=== PATIENT | male | born 1930 | race Caucasian/White ===

== ENCOUNTER 2016-07-14 09:28 | Emergency (ER) | payer MEDICARE ==
[2016-07-14 09:47] VITALS: BP 158/82
[2016-07-14] MEDS ORDERED: Sodium Chloride 0.9% 10 ML Syringe FLUSH PRN (10:05)
[2016-07-14] MEDS ORDERED: Sodium Chloride 0.9% 1,000 ML IV STA (10:05)
[2016-07-14] MEDS ORDERED: Ondansetron 4 MG/2 ML SDV IVPUSH ONE (10:07)
--- NOTE | 2016-07-14 10:14 | EDM.PDOC ---
ED HPI GENERAL MEDICAL PROBLEM - General Chief Complaint: General Stated Complaint: COMPLICATIONS FROM MRI Time Seen by Provider: 07/14/16 10:09 Source of Information: Reports: Patient, RN notes reviewed History Limitations: Reports: No limitations - History of Present Illness INITIAL COMMENTS - FREE TEXT/NARRATIVE: 78-year-old gentleman presents emergency department today with sudden onset nausea vomiting and dizziness, has a known history of vascular dementia has had difficulties with behavior in the past was currently undergoing an MRI for ongoing low back pain, after completion of the MRI he had a sudden onset of dizziness with vomiting. He did not receive contrast in the MRI was brought to the emergency department from the MRI suite continues to have nausea and vomiting in the emergency department. Has had intermittent bouts of dizziness over last several days. Normally uses morphine as a cough suppressant did take morphine this morning possibly on an empty stomach - Related Data Allergies Allergy/AdvReac Type Severity Reaction Status Date / Time donepezil [From Aricept] Allergy Insomnia Verified 06/25/16 16:35 onion Allergy Other Verified 06/25/16 16:35 oxybutynin Allergy Swelling Verified 06/25/16 16:35 Home Meds: Home Meds Citalopram [Citalopram HBr] 20 mg PO DAILY 12/27/15 [History] Clopidogrel [Plavix] 75 mg PO DAILY 12/27/15 [History] Furosemide [Lasix] 40 mg PO BID 12/27/15 [History] Esomeprazole Magnesium 40 mg PO DAILY 05/07/16 [History] Multivit-Min/FA/Lycopene/Lut [Centrum Silver Tablet] 1 tab PO DAILY 05/07/16 [ History] Ibuprofen [Motrin] 600 mg PO Q6H PRN 06/09/16 [History] traMADol [Ultram] 50 mg PO Q6H PRN 06/09/16 [History] Aspirin/Calcium Carbonate/Mag [Aspirin Buffered 325 mg Tab] 325 mg PO DAILY [History] Methylprednisolone [IJD: Methylprednisolone] 4 mg PO DAILY 06/25/16 [History] Mirtazapine [Remeron] 7.5 mg PO BEDTIME 06/25/16 [History] QUEtiapine Fumarate [Seroquel] 12.5 mg PO BID 06/25/16 [History] Rivastigmine Tartrate [Rivastigmine] 3 mg PO BID 06/25/16 [History] atorvaSTATin Calcium [Atorvastatin Calcium] 80 mg PO DAILY 06/25/16 [History] Amoxicillin/Clavulanate K [Augmentin 875-125 MG] 1 tab PO BID 07/13/16 [History] Benzonatate [Tessalon Perles] 1 tab PO Q4H PRN 07/13/16 [History] Past Medical History HEENT History: Reports: Impaired vision Cardiovascular History: Reports: Congenital septal defect, Heart murmur, High cholesterol, Hypertension Gastrointestinal History: Reports: GERD Genitourinary History: Reports: Chronic renal insuffiency Musculoskeletal History: Reports: Other (see below) Other Musculoskeletal History: chronic left hip pain Neurological History: Reports: TIA Other Neuro History: daughter states patient has had a stroke Psychiatric History: Reports: Anxiety, Dementia, Depression Oncologic (Cancer) History: Reports: Other (see below) Other Oncologic History: 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 - Infectious Disease History Infectious Disease History: Reports: Chicken pox, Measles, Mumps - Past Surgical History Cardiovascular Surgical History: Reports: Coronary artery bypass Social & Family History - Tobacco Use Smoking Status *Q: Never Smoker Second Hand Smoke Exposure: No - Caffeine Use Caffeine Use: Reports: None - Recreational Drug Use Recreational Drug Use: No ED ROS GENERAL - Review of Systems Review Of Systems: See Below Constitutional: Denies: fever, chills HEENT: Reports: Vertigo Respiratory: Reports: No Symptoms Cardiovascular: Reports: No symptoms GI/Abdominal: Reports: Nausea, Vomiting : Reports: no symptoms Musculoskeletal: Reports: no symptoms Skin: Reports: no symptoms Neurological: Reports: Dizziness, Syncope (Near syncope) ED EXAM, GENERAL - Physical Exam Exam: See Below Free Text/Narrative:: General: Elderly male, not in any distress slightly confused oriented x1 HEENT: head is atraumatic normocephalic, eyes pupils equal round reactive to light and accommodation sclera clear no conjunctivitis appreciated. Ears blocked by cerumen bilaterally. Nose no septal deviation, nares are clear, no blood present. Mouth mucosa is moist and pink no erythema or exudate noted in soft palate, tongue is midline uvula is midline, dentition is intact. Neck: Supple no thyromegaly no tracheal deviation. Nodes: Cervical nodes subclavicular nodes nontender no palpable lymphadenopathy noted. Lungs: clear to auscultation bilaterally with symmetrical respirations, no adventitious noise appreciated. CV: Regular rate and rhythm S1 and S2 appreciated no murmurs rubs or gallops noted. Abdomen: Soft, nontender, no palpable masses or organomegaly appreciated, no distention no guarding bowel sounds are present, . Neuro: Cranial nerves II through XII grossly intact power is 5 out of 5 in upper extremities can do rapid alternating movements Romberg is negative however after Romberg was completed after standing for approximately 5 minutes became dizzy and started vomiting Skin: Warm and dry, intact Extremities: +1 pedal edema bilaterally Course - Vital Signs Last Recorded V/S: Last Vital Signs Temp 98.1 F 07/14/16 09:47 Pulse 67 07/14/16 09:47 Resp 16 07/14/16 09:47 BP 158/82 H 07/14/16 09:47 Pulse Ox 96 07/14/16 09:47 - Orders/Labs/Meds Orders: Active Orders 24 hr Category Date Time Status EKG Documentation Completion [RC] ASDIRECTED Care 07/14/16 10:07 Active Peripheral IV Care [RC] . DIRECTED Care 07/14/16 10:06 Active UA W/MICROSCOPIC [URIN] Urgent Lab 07/14/16 10:05 Uncollected Sodium Chloride 0.9% [Normal Saline] 1,000 ml Med 07/14/16 10:05 Active IV .BOLUS Sodium Chloride 0.9% [Saline Flush] Med 07/14/16 10:05 Active 10 ml FLUSH ASDIRECTED PRN Peripheral IV Insertion Adult [OM.PC] Urgent Oth 07/14/16 10:05 Ordered EKG 12 Lead [EK] Stat Ther 07/14/16 10:07 Ordered Medication Orders Sodium Chloride (Normal Saline) 1,000 mls @ 500 mls/hr IV .BOLUS STA Stop: 07/14/16 12:04 Last Admin: 07/14/16 10:20 Dose: 500 mls/hr Sodium Chloride (Saline Flush) 10 ml FLUSH ASDIRECTED PRN PRN Reason: Keep Vein Open Last Admin: 07/14/16 10:21 Dose: 10 ml Labs: Laboratory Tests 07/14/16 07/14/16 Range/Units 10:15 10:15 WBC 7.2 (4.5-11.0) K/uL RBC 3.47 L (4.30-5.90) M/uL Hgb 10.9 L (12.0-15.0) g/dL Hct 32.9 L (40.0-54.0) % MCV 95 (80-98) fL MCH 31 (27-31) pg MCHC 33 (32-36) % Plt Count 243 (150-400) K/uL Neut % (Auto) 54 (36-66) % Lymph % (Auto) 32 (24-44) % [place] % (Auto) 8 H (2-6) % Eos % (Auto) 6 H (2-4) % Baso % (Auto) 1 (0-1) % Sodium 141 (140-148) mmol/L Potassium 4.7 (3.6-5.2) mmol/L Chloride 105 (100-108) mmol/L Carbon Dioxide 27 (21-32) mmol/L Anion Gap 8.8 (5.0-14.0) mmol/L BUN 22 H (7-18) mg/dL Creatinine 1.6 H (0.8-1.3) mg/dL Est Cr Clr Drug Dosing 35.08 mL/min Estimated GFR (MDRD) 41 L (>60) Glucose 110 H (74-106) mg/dL Calcium 8.4 L (8.5-10.1) mg/dL Total Bilirubin 0.4 (0.2-1.0) mg/dL AST 21 (15-37) U/L ALT 23 (12-78) U/L Alkaline Phosphatase 42 L (46-116) U/L Total Protein 6.8 (6.4-8.2) g/dL Albumin 3.4 (3.4-5.0) g/dL Globulin 3.4 (2.3-3.5) g/dL Albumin/Globulin Ratio 1.0 L (1.2-2.2) Meds: Medications Generic Name Dose Route Start Last Admin Trade Name Freq PRN Reason Stop Dose Admin Sodium Chloride 1,000 mls @ 500 mls/hr 07/14/16 10:05 07/14/16 10:20 Normal Saline IV 07/14/16 12:04 500 mls/hr .BOLUS STA Administration Sodium Chloride 10 ml 07/14/16 10:05 07/14/16 10:21 Saline Flush FLUSH 10 ml ASDIRECTED PRN Administration Keep Vein Open Discontinued Medications Generic Name Dose Route Start Last Admin Trade Name Freq PRN Reason Stop Dose Admin Ondansetron HCl 4 mg 07/14/16 10:07 07/14/16 10:21 Zofran IVPUSH 07/14/16 10:08 4 mg ONETIME ONE Administration Departure - Departure Time of Disposition: 11:24 Disposition: Home, Self-Care 01 Condition: fair Clinical Impression: Dizzy Forms: ED Department Discharge Additional Instructions: Use Zofran as needed for nausea and vomiting symptoms, Please followup with your primary care provider in 3-5 days if not better, please call return to the emergency department with worsening of symptoms. - My Orders Last 24 Hours: My Active Orders 07/14/16 10:05 UA W/MICROSCOPIC [URIN] Urgent Sodium Chloride 0.9% [Normal Saline] 1,000 ml IV .BOLUS Sodium Chloride 0.9% [Saline Flush] 10 ml FLUSH ASDIRECTED PRN Peripheral IV Insertion Adult [OM.PC] Urgent 07/14/16 10:06 Peripheral IV Care [RC] . DIRECTED 07/14/16 10:07 EKG Documentation Completion [RC] ASDIRECTED EKG 12 Lead [EK] Stat - Assessment/Plan Last 24 Hours: My Active Orders 07/14/16 10:05 UA W/MICROSCOPIC [URIN] Urgent Sodium Chloride 0.9% [Normal Saline] 1,000 ml IV .BOLUS Sodium Chloride 0.9% [Saline Flush] 10 ml FLUSH ASDIRECTED PRN Peripheral IV Insertion Adult [OM.PC] Urgent 07/14/16 10:06 Peripheral IV Care [RC] . DIRECTED 07/14/16 10:07 EKG Documentation Completion [RC] ASDIRECTED EKG 12 Lead [EK] Stat Plan: Assessment Acuity = acute Site and laterality = nausea and vomiting with frequent falls complicated patient with known history of vascular dementia as well as history of cerebrovascular currently on aspirin and Plavix Etiology = unclear etiology certainly suspicious for cerebrovascular accident Manifestations = none Location of injury = home Lab values = EKG demonstrates a sinus rhythm with a left bundle branch block similar to EKG in 2016 hemoglobin low at 10.9 consistent normochromic anemia creatinine elevated 1.6 consistent chronic renal failure stage G. IIIB Plan I did discuss options with them including further evaluation which would include a head scan however they declined because of limited treatment options, the patient feels his symptoms have resolved with Zofran and would like to go home, prescription written for Zofran, followup with primary care 3-5 days if not better Patient was in agreement with the plan all questions were answered, they were instructed to return to the emergency department or call for worsening symptoms. This note was dictated using [employer] voice recognition software please call with any questions.
== END 2016-07-14 11:35 | disposition home or self-care (01) ==
LOC: JP.ED 09:28
DX: R42 Dizziness and giddiness (principal); R11.2 Nausea with vomiting, unspecified; F01.51 Vascular dementia, unspecified severity, with behavioral disturbance; E78.00 Pure hypercholesterolemia, unspecified; I12.9 Hypertensive chronic kidney disease with stage 1 through stage 4 chronic kidney disease, or unspecified chronic kidney disease; N18.9 Chronic kidney disease, unspecified; Z86.73 Personal history of transient ischemic attack (TIA), and cerebral infarction without residual deficits; F41.9 Anxiety disorder, unspecified; F32.9 Major depressive disorder, single episode, unspecified; Z85.828 Personal history of other malignant neoplasm of skin; Z95.1 Presence of aortocoronary bypass graft; Z79.02 Long term (current) use of antithrombotics/antiplatelets; Z79.82 Long term (current) use of aspirin; Z79.899 Other long term (current) drug therapy; Z88.8 Allergy status to other drugs, medicaments and biological substances; Z91.018 Allergy to other foods
CPT/HCPCS: 36415; 80053; 85025; 93005; J2405; J7040; J7050; 93010; 96361; 96374; 99284; 99284-25

== ENCOUNTER 2016-08-23 15:44 | Emergency (ER) | payer MEDICARE ==
[2016-08-23 16:04] VITALS: BP 115/58
[2016-08-23] MEDS ORDERED: Ketorolac 60 MG/2 ML SDV IM ONE (16:27)
[2016-08-23] MEDS ORDERED: methylPREDNISolone Sodium Succinate 125 MG/2 ML SDV IM ONE (16:27)
--- NOTE | 2016-08-23 16:31 | EDM.PDOC ---
[id number] 4d LEFT SHOULDER & NECK PAIN Time Seen by Provider: 08/23/16 16:15 Source: Reports: Patient, Family History Limitations: Reports: Other (Patient is confused, dementia and is an inconsistent historian) - History of Present Illness INITIAL COMMENTS - FREE TEXT/NARRATIVE: 78-year-old male who for the last 2 days has had left neck pain radiating into the arm. He has known arthritis and cervical disc disease. They tried her usual medication available to him including tramadol and oxycodone but he had no relief. Today he is uncomfortable but moving a little better. No falls or specific trauma. No fevers or chills. No other illness. Occurred When: other (Over the past 48 hours) Severity: moderate Pain/Injury Location: Reports: neck, upper extremity, left Consciousness: Reports: no loss of consciousness Associated Symptoms: Reports: muscle spasms, neck pain, other (Pain into his left shoulder and arm and also some "swelling" of his left hand). Denies: chest pain, headache Allergies/ADRs: Allergies donepezil [From Aricept] Allergy (Verified 07/22/16 11:35) Insomnia onion Allergy (Verified 07/22/16 11:35) Other oxybutynin Allergy (Verified 07/22/16 11:35) Swelling Home Medications: Ambulatory Orders Citalopram [Citalopram HBr] 20 mg PO DAILY 12/27/15 [Confirmed 07/22/16] Clopidogrel [Plavix] 75 mg PO DAILY 12/27/15 [Confirmed 07/22/16] Furosemide [Lasix] 40 mg PO BID 12/27/15 [Confirmed 07/22/16] Esomeprazole Magnesium 40 mg PO DAILY 05/07/16 [Confirmed 07/22/16] Multivit-Min/FA/Lycopene/Lut [Centrum Silver Tablet] 1 tab PO DAILY 05/07/16 [ Confirmed 07/22/16] Ibuprofen [Motrin] 600 mg PO Q6H PRN 06/09/16 [Confirmed 07/22/16] traMADol [Ultram] 50 mg PO Q6H PRN 06/09/16 [Confirmed 07/22/16] Aspirin/Calcium Carbonate/Mag [Aspirin Buffered 325 mg Tab] 325 mg PO DAILY [Confirmed 07/22/16] Methylprednisolone [IJD: Methylprednisolone] 4 mg PO DAILY 06/25/16 [Confirmed 07/22/16] Mirtazapine [Remeron] 7.5 mg PO BEDTIME 06/25/16 [Confirmed 07/22/16] QUEtiapine Fumarate [Seroquel] 12.5 mg PO BID 06/25/16 [Confirmed 07/22/16] Rivastigmine Tartrate [Rivastigmine] 3 mg PO BID 06/25/16 [Confirmed 07/22/16] atorvaSTATin Calcium [Atorvastatin Calcium] 80 mg PO DAILY 06/25/16 [Confirmed 07/22/16] Benzonatate [Tessalon Perles] 1 tab PO Q4H PRN 07/13/16 [Confirmed 07/22/16] Past Medical History HEENT History: Reports: Impaired vision Cardiovascular History: Reports: Congenital septal defect, Heart murmur, High cholesterol, Hypertension Gastrointestinal History: Reports: GERD Genitourinary History: Reports: Chronic renal insuffiency Musculoskeletal History: Reports: Other (see below) Other Musculoskeletal History: chronic left hip pain Neurological History: Reports: TIA Other Neuro History: daughter states patient has had a stroke Psychiatric History: Reports: Anxiety, Dementia, Depression Oncologic (Cancer) History: Reports: Other (see below) Other Oncologic History: 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 - Infectious Disease History Infectious Disease History: Reports: Chicken pox, Measles, Mumps - Past Surgical History Cardiovascular Surgical History: Reports: Coronary artery bypass Social & Family History - Tobacco Use Smoking Status *Q: Never Smoker Second Hand Smoke Exposure: No - Caffeine Use Caffeine Use: Reports: None - Recreational Drug Use Recreational Drug Use: No Review of Systems - Review of Systems Review Of Systems: See Below Constitutional: Denies: fever Eyes: Denies: vision change Ears: Denies: dizziness Respiratory: Denies: Shortness of Breath, Cough Cardiovascular: Denies: chest pain GI/Abdominal: Denies: Nausea, Vomiting Genitourinary: Reports: no symptoms Musculoskeletal: Reports: neck pain, arm pain, other (His hand was swollen) Skin: Reports: no symptoms Neurological: Reports: Confusion (Chronic and stable). Denies: Headache Trauma Exam - Physical Exam Exam: See Below Exam Limited By: No limitations General Appearance: Reports: alert, moderate distress Head: Reports: atraumatic, other (He has marked pain along the left paracervical muscles with rotation of the head to the left or palpation of the neck) Neck: Reports: painful range of motion, tenderness (Along the paracervical muscles on the left side). Denies: spinous processes tender Respiratory Exam: Reports: no respiratory distress, lungs clear Cardiovascular: Reports: regular rate, rhythm Extremities: Reports: no evidence of injury, other (I don't appreciate any swelling or asymmetry of the upper or lower extremity) Course - Vital Signs Last Recorded V/S: Last Vital Signs Temp 97.3 F 08/23/16 16:10 Pulse 68 08/23/16 16:10 Resp 16 08/23/16 16:10 BP 115/58 L 08/23/16 16:10 Pulse Ox 95 08/23/16 16:10 - Orders/Labs/Meds Meds: Medications Discontinued Medications Generic Name Dose Route Start Last Admin Trade Name Meredith PRN Reason Stop Dose Admin Ketorolac Tromethamine 60 mg 08/23/16 16:27 08/23/16 17:06 Toradol IM 08/23/16 16:28 60 mg ONETIME ONE Administration Methylprednisolone Sodium Succinate 125 mg 08/23/16 16:27 08/23/16 17:07 Solu-Medrol IM 08/23/16 16:28 125 mg ONETIME ONE Administration - Re-Assessments/Exams Free Text/Narrative Re-Assessment/Exam: 08/23/16 17:26 Patient was given 60 mg of Toradol IM along with one 25 of Solu-Medrol IM. Still having some discomfort but some improvement. He was given 15 Flexeril to take one up to every 6-8 hours at home along with his pain medications and he can recheck in 2-3 days if not improving Departure - Departure Time of Disposition: 17:38 Disposition: Home, Self-Care 01 Condition: fair Clinical Impression: Neck pain, acute Dementia with behavioral problem Qualifiers: Dementia type: unspecified type Qualified Code(s): F03.91 - Unspecified dementia with behavioral disturbance Instructions: Muscle Strain, [id number] Referrals: Sidney Lorenzana [employer] [Primary Care Provider] - Forms: ED Department Discharge Care Plan Goals: Continue regular medications and add muscle relaxer up to 3 times daily if needed. Recheck in 2-3 days if not improving satisfactorily.
== END 2016-08-23 17:39 | disposition home or self-care (01) ==
LOC: JP.ED 15:44
DX: M54.2 Cervicalgia (principal); F03.91 Unspecified dementia, unspecified severity, with behavioral disturbance; E78.00 Pure hypercholesterolemia, unspecified; I10 Essential (primary) hypertension; K21.9 Gastro-esophageal reflux disease without esophagitis; F41.9 Anxiety disorder, unspecified; F32.9 Major depressive disorder, single episode, unspecified; Z86.73 Personal history of transient ischemic attack (TIA), and cerebral infarction without residual deficits; Z95.1 Presence of aortocoronary bypass graft; Z79.899 Other long term (current) drug therapy; Z88.8 Allergy status to other drugs, medicaments and biological substances; Z91.018 Allergy to other foods
CPT/HCPCS: 96372; 99283; J1885; J2930

== ENCOUNTER 2016-08-27 13:53 | Observation (INO) | payer MEDICARE ==
--- NOTE | 2016-08-27 14:39 | EDM.PDOC ---
[id number] [facility] Time Seen by Provider: 08/27/16 14:10 Source of Information: Reports: EMS, Family History Limitations: Reports: Other (Patient has advanced dementia and marked confusion) - History of Present Illness INITIAL COMMENTS - FREE TEXT/NARRATIVE: 86-year-old male brought in by ambulance with intense substernal and upper abdominal pain for the last one to one and a half hours. He was resting when he was awoke with crushing pain, was yelling for his family and tearful. It appeared he was short of breath. The patient has an extremely difficult time communicating rationally his symptoms and history because of his profound dementia. I just saw this patient a few days ago with intense neck pain. He also has recurring strokelike symptoms but it has been decided by the family that nothing will be done, he also has behavioral issues which they are attributing to recurring TIAs or strokes. He has a history of a cardia bypass but it has been over 40 years ago. When the family was pressed for a cardiac history while he was in [place] they admitted he went to the emergency room by ambulance at least 5-7 times last year with these types of symptoms. He was hospitalized several times, was told that he has an arrhythmia at nighttime. They're unsure if he did any further cardiac testing. Patient was given aspirin and nitroglycerin per EMS in route and it appears he is doing better. Onset: sudden Severity: moderate Context: Reports: Other (Symptoms seem to be worse when lying down and inactive) - Related Data Allergies Allergy/AdvReac Type Severity Reaction Status Date / Time donepezil [From Aricept] Allergy Insomnia Verified 07/22/16 11:35 onion Allergy Other Verified 07/22/16 11:35 oxybutynin Allergy Swelling Verified 07/22/16 11:35 Home Meds: Home Meds Citalopram [Citalopram HBr] 20 mg PO DAILY 12/27/15 [History] Clopidogrel [Plavix] 75 mg PO DAILY 12/27/15 [History] Furosemide [Lasix] 40 mg PO BID 12/27/15 [History] Esomeprazole Magnesium 40 mg PO DAILY 05/07/16 [History] Multivit-Min/FA/Lycopene/Lut [Centrum Silver Tablet] 1 tab PO DAILY 05/07/16 [ History] Ibuprofen [Motrin] 600 mg PO Q6H PRN 06/09/16 [History] traMADol [Ultram] 50 mg PO Q6H PRN 06/09/16 [History] Methylprednisolone [IJD: Methylprednisolone] 4 mg PO DAILY 06/25/16 [History] Mirtazapine [Remeron] 7.5 mg PO BEDTIME 06/25/16 [History] QUEtiapine Fumarate [Seroquel] 12.5 mg PO BID 06/25/16 [History] Rivastigmine Tartrate [Rivastigmine] 3 mg PO BID 06/25/16 [History] atorvaSTATin Calcium [Atorvastatin Calcium] 80 mg PO DAILY 06/25/16 [History] Benzonatate [Tessalon Perles] 1 tab PO Q4H PRN 07/13/16 [History] Aspirin 325 mg PO DAILY 08/27/16 [History] Past Medical History HEENT History: Reports: Impaired vision Cardiovascular History: Reports: Congenital septal defect, Heart murmur, High cholesterol, Hypertension Gastrointestinal History: Reports: GERD Genitourinary History: Reports: Chronic renal insuffiency Musculoskeletal History: Reports: Other (see below) Other Musculoskeletal History: chronic left hip pain Neurological History: Reports: TIA Other Neuro History: daughter states patient has had a stroke Psychiatric History: Reports: Anxiety, Dementia, Depression Oncologic (Cancer) History: Reports: Other (see below) Other Oncologic History: 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 (Brief review of systems from the family only reveals a intermittent abdominal discomfort, recent neck pain and behavioral problems.) ED EXAM, GENERAL - Physical Exam Exam: See Below Exam Limited By: No limitations General Appearance: alert, no apparent distress Eye Exam: bilateral eye: EOMI Throat/Mouth: Normal inspection Respiratory/Chest: no respiratory distress, lungs clear Cardiovascular: regular rate, rhythm GI/Abdominal: soft, other (He does complain of tenderness to palpation across the upper abdomen, he has a fairly prominent ventral hernia) Extremities: pedal edema (Has a trace of lower extremity edema bilaterally, they 're symmetric) Neurological: no motor/sensory deficits (Grossly no weakness of an extremity or asymmetry of sensation to the extremities) Psychiatric: other (Patient is very friendly, animated and does not appear to be in any distress) Skin Exam: Warm, Dry EKG INTERPRETATION Rhythm: NSR QRS: LBBB (Incomplete) ST-T: normal Course - Vital Signs Last Recorded V/S: Last Vital Signs Temp 99.0 F 08/28/16 07:03 Pulse 67 08/28/16 07:03 Resp 18 08/28/16 07:03 BP 98/50 L 08/28/16 07:03 Pulse Ox 95 08/28/16 07:03 - Orders/Labs/Meds Orders: Active Orders 24 hr Category Date Time Status EKG 12 Lead [EK] Routine Ther 08/27/16 14:34 Stop Req Medication Orders Acetaminophen (Tylenol) 650 mg PO Q4H PRN PRN Reason: Pain (Mild 1-3)/fever Last Admin: 08/27/16 23:33 Dose: 650 mg Admin: 08/27/16 19:09 Dose: 650 mg Albuterol (Proventil Neb Soln) 2.5 mg NEB Q4H PRN PRN Reason: Shortness Of Breath/wheezing Aspirin (Ecotrin) 325 mg PO DAILY [facility] Atorvastatin Calcium (Lipitor) 80 mg PO DAILY JUN Benzonatate (Tessalon Perles) 100 mg PO TID PRN PRN Reason: Cough Citalopram Hydrobromide (Celexa) 20 mg PO DAILY [facility] Clopidogrel Bisulfate (Plavix) 75 mg PO DAILY JUN Furosemide (Lasix) 40 mg PO BIDDIURETIC JUN Methylprednisolone (Medrol) 4 mg PO DAILY [facility] Mirtazapine (Remeron) 7.5 mg PO BEDTIME JUN Last Admin: 08/27/16 20:39 Dose: 7.5 mg Ondansetron HCl (Zofran Odt) 4 mg PO Q6H PRN PRN Reason: Nausea able to take PO Ondansetron HCl (Zofran) 4 mg IV Q6H PRN PRN Reason: Nausea/Vomiting Pantoprazole Sodium (Protonix) 40 mg PO ACBREAKFAST [facility] Polyethylene Glycol (Miralax) 17 gm PO DAILY PRN PRN Reason: Constipation Quetiapine Fumarate (Seroquel) 12.5 mg PO BID [facility] Last Admin: 08/27/16 20:40 Dose: 12.5 mg Rivastigmine (Exelon) 3 mg PO BID [facility] Last Admin: 08/27/16 20:39 Dose: 3 mg Tramadol HCl (Ultram) 50 mg PO Q6H PRN PRN Reason: Pain Labs: Laboratory Tests 08/27/16 08/27/16 08/27/16 Range/Units 14:33 14:33 14:33 WBC 7.6 (4.5-11.0) K/uL RBC 3.53 L (4.30-5.90) M/uL Hgb 11.2 L (12.0-15.0) g/dL Hct 34.3 L (40.0-54.0) % MCV 97 (80-98) fL MCH 32 H (27-31) pg MCHC 33 (32-36) % Plt Count 258 (150-400) K/uL Neut % (Auto) 74 H (36-66) % Lymph % (Auto) 18 L (24-44) % [place] % (Auto) 5 (2-6) % Eos % (Auto) 3 (2-4) % Baso % (Auto) 0 (0-1) % Sodium 142 (140-148) mmol/L Potassium 4.3 (3.6-5.2) mmol/L Chloride 106 (100-108) mmol/L Carbon Dioxide 28 (21-32) mmol/L Anion Gap 8.3 (5.0-14.0) mmol/L BUN 31 H (7-18) mg/dL Creatinine 1.4 H (0.8-1.3) mg/dL Est Cr Clr Drug Dosing 40.09 mL/min Estimated GFR (MDRD) 48 L (>60) Glucose 92 (74-106) mg/dL Calcium 8.2 L (8.5-10.1) mg/dL Total Bilirubin 0.4 (0.2-1.0) mg/dL AST 85 H D (15-37) U/L ALT 70 D (12-78) U/L Alkaline Phosphatase 165 H D (46-116) U/L Troponin I < 0.017 (0.000-0.056) ng/mL Total Protein 6.2 L (6.4-8.2) g/dL Albumin 3.1 L (3.4-5.0) g/dL Globulin 3.1 (2.3-3.5) g/dL Albumin/Globulin Ratio 1.0 L (1.2-2.2) Meds: Medications Generic Name Dose Route Start Last Admin Trade Name Freq PRN Reason Stop Dose Admin Acetaminophen 650 mg 08/27/16 17:17 08/27/16 23:33 Tylenol PO 650 mg Q4H PRN Administration Pain (Mild 1-3)/fever Albuterol 2.5 mg 08/27/16 17:17 Proventil Neb Soln NEB Q4H PRN Shortness Of Breath/wheezing Aspirin 325 mg 08/28/16 09:00 Ecotrin PO DAILY [facility] Atorvastatin Calcium 80 mg 08/28/16 09:00 Lipitor PO DAILY JUN Benzonatate 100 mg 08/27/16 17:17 Tessalon Perles PO TID PRN Cough Citalopram Hydrobromide 20 mg 08/28/16 09:00 Celexa PO DAILY [facility] Clopidogrel Bisulfate 75 mg 08/28/16 09:00 Plavix PO DAILY [facility] Furosemide 40 mg 08/28/16 08:00 Lasix PO BIDDIURETIC JUN Methylprednisolone 4 mg 08/28/16 09:00 Medrol PO DAILY [facility] Mirtazapine 7.5 mg 08/27/16 21:00 08/27/16 20:39 Remeron PO 7.5 mg BEDTIME JUN Administration Ondansetron HCl 4 mg 08/27/16 17:17 Zofran Odt PO Q6H PRN Nausea able to take PO Ondansetron HCl 4 mg 08/27/16 17:17 Zofran IV Q6H PRN Nausea/Vomiting Pantoprazole Sodium 40 mg 08/28/16 07:30 Protonix PO ACBREAKFAST JUN Polyethylene Glycol 17 gm 08/27/16 17:17 Miralax PO DAILY PRN Constipation Quetiapine Fumarate 12.5 mg 08/27/16 21:00 08/27/16 20:40 Seroquel PO 12.5 mg BID JUN Administration Rivastigmine 3 mg 08/27/16 21:00 08/27/16 20:39 Exelon PO 3 mg BID JUN Administration Tramadol HCl 50 mg 08/27/16 17:17 Ultram PO Q6H PRN Pain - Re-Assessments/Exams Free Text/Narrative Re-Assessment/Exam: 08/27/16 14:40 EKG done by EMS and by nursing staff here at the ER show no acute findings. A CBC, CMP and troponin will be obtained, the patient likely will need to be admitted for overnight telemetry and serial troponins. I think a social service consult is needed to help this family deal with his recurring pain symptoms and anxiety along with his behavioral issues. Departure - Departure Time of Disposition: 17:17 Disposition: Admitted As Inpatient 64 Condition: fair Clinical Impression: Atypical chest pain CAD (coronary artery disease) Qualifiers: Coronary Disease-Associated Artery/Lesion type: [place] artery [place] vs. transplanted heart: [place] heart Associated angina: angina presence unspecified Qualified Code(s): I25.10 - Atherosclerotic heart disease of [place] coronary artery without angina pectoris Vascular dementia Qualifiers: Dementia behavioral disturbance: with behavioral disturbance Qualified Code(s) : F01.51 - Vascular dementia with behavioral disturbance Dementia with behavioral problem Qualifiers: Dementia type: unspecified type Qualified Code(s): F03.91 - Unspecified dementia with behavioral disturbance - My Orders Last 24 Hours: My Active Orders 08/27/16 14:34 EKG 12 Lead [EK] Routine - Assessment/Plan Last 24 Hours: My Active Orders 08/27/16 14:34 EKG 12 Lead [EK] Routine
--- NOTE | 2016-08-27 16:57 | PCM.HP ---
H&P History of Present Illness - General Date of Service: 08/27/16 Admit Problem/Dx: Admission Diagnosis/Problem Admission Diagnosis/Problem Atypical chest pain Source of Information: Patient, Family, Provider History Limitations: Reports: Altered mental status (dementia ) - History of Present Illness Initial Comments - Free Text/Narative: Lance presents to the emergency room today after an episode of severe chest pain. He has trouble recalling the details of the event because of his dementia. He really does not provide much useful history because of his dementia. His daughter Lisa reports that around 11:30 this morning he woke up yelling in pain. He was clutching his chest and appeared diaphoretic at the time. He did not appear to be short of breath but did appear to be quite uncomfortable. Lance seems to kind of sort of recall some pain but is not able to characterize it. He appeared very uncomfortable so 911 was called. When paramedics arrived they gave him 4 baby aspirin and a dose of nitroglycerin. He has been pain free since shortly after those medications were administered. His daughter reports that he's had several previous episodes very similar to this. He has been observed in the hospital on several occasions and she does not think that they have never found a cause. She does seem to think that most of these episodes happened while he is sleeping and laying down. He does not recall any recent fevers. He has not complained to her of any abdominal pain, diarrhea or change in his urinary habits recently. Workup in the emergency room has been reassuring with normal EKG, normal labs and stable vitals. Given the severity of the pain and his history of coronary artery disease it was thought prudent that he be admitted for observation and further workup. - Related Data Allergies/Adverse Reactions: Allergies Allergy/AdvReac Type Severity Reaction Status Date / Time donepezil [From Aricept] Allergy Insomnia Verified 07/22/16 11:35 onion Allergy Other Verified 07/22/16 11:35 oxybutynin Allergy Swelling Verified 07/22/16 11:35 Home Medications: Home Meds Citalopram [Citalopram HBr] 20 mg PO DAILY 12/27/15 [History] Clopidogrel [Plavix] 75 mg PO DAILY 12/27/15 [History] Furosemide [Lasix] 40 mg PO BID 12/27/15 [History] Esomeprazole Magnesium 40 mg PO DAILY 05/07/16 [History] Multivit-Min/FA/Lycopene/Lut [Centrum Silver Tablet] 1 tab PO DAILY 05/07/16 [ History] Ibuprofen [Motrin] 600 mg PO Q6H PRN 06/09/16 [History] traMADol [Ultram] 50 mg PO Q6H PRN 06/09/16 [History] Methylprednisolone [IJD: Methylprednisolone] 4 mg PO DAILY 06/25/16 [History] Mirtazapine [Remeron] 7.5 mg PO BEDTIME 06/25/16 [History] QUEtiapine Fumarate [Seroquel] 12.5 mg PO BID 06/25/16 [History] Rivastigmine Tartrate [Rivastigmine] 3 mg PO BID 06/25/16 [History] atorvaSTATin Calcium [Atorvastatin Calcium] 80 mg PO DAILY 06/25/16 [History] Benzonatate [Tessalon Perles] 1 tab PO Q4H PRN 07/13/16 [History] Aspirin 325 mg PO DAILY 08/27/16 [History] Past Medical History HEENT History: Reports: Impaired vision Cardiovascular History: Reports: Congenital septal defect, Heart murmur, High cholesterol, Hypertension Gastrointestinal History: Reports: GERD Genitourinary History: Reports: Chronic renal insuffiency Musculoskeletal History: Reports: Other (see below) Other Musculoskeletal History: chronic left hip pain Neurological History: Reports: TIA Other Neuro History: daughter states patient has had a stroke Psychiatric History: Reports: Anxiety, Dementia, Depression Oncologic (Cancer) History: Reports: Other (see below) Other Oncologic History: 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 - Infectious Disease History Infectious Disease History: Reports: Chicken pox, Measles, Mumps - Past Surgical History Cardiovascular Surgical History: Reports: Coronary artery bypass Social & Family History - Family History Cardiac: Reports: [place] (mother) - Tobacco Use Smoking Status *Q: Never Smoker Second Hand Smoke Exposure: No - Caffeine Use Caffeine Use: Reports: None - Alcohol Use Alcohol Use History: No - Recreational Drug Use Recreational Drug Use: No H&P Review of Systems - Review of Systems: Review Of Systems: See Below Free Text/Narrative: A complete 12 point review of systems was obtained. Pertinent positives and negatives are noted in the history of present illness. All other systems were reviewed and were negative except as noted. Exam - Exam Exam: See Below - Vital Signs Vital Signs: Last Vital Signs Temp 35.3 C 08/27/16 14:08 Pulse 67 08/27/16 14:08 Resp 15 08/27/16 14:08 BP 126/65 08/27/16 14:08 Pulse Ox 97 08/27/16 14:08 Weight: 80 kg - Exam Quality Assessment: No: supplemental oxygen, urinary catheter General: alert, cooperative. No: oriented, mild distress HEENT: Conjunctiva clear, Mucosa moist & pink. No: Scleral icterus Neck: supple, trachea midline. No: lymphadenopathy Lungs: Clear to auscultation, Normal respiratory effort Cardiovascular: regular rate, regular rhythm, systolic murmur Abdomen: normal bowel sounds, soft. No: distention, tenderness Back Exam: normal inspection, full range of motion Extremities: normal pulses, edema (pitting ankle edema bilaterally ). No: clubbing, cyanosis Peripheral Pulses: 2+: dorsalis pedis (L), dorsalis pedis (R) Skin: warm, dry. No: rash Neuro Extensive - Mental Status: alert, nl response to commands. No: oriented x3 Neuro Extensive - Motor, Sensory, Reflexes: CN II-XII intact. No: dysarthria, abnormal motor, tremor Psychiatric: alert, normal affect - Patient Data Lab Results last 24 hrs: Laboratory Results - last 24 hr 08/27/16 08/27/16 08/27/16 Range/Units 14:33 14:33 14:33 WBC 7.6 (4.5-11.0) K/uL RBC 3.53 L (4.30-5.90) M/uL Hgb 11.2 L (12.0-15.0) g/dL Hct 34.3 L (40.0-54.0) % MCV 97 (80-98) fL MCH 32 H (27-31) pg MCHC 33 (32-36) % Plt Count 258 (150-400) K/uL Neut % (Auto) 74 H (36-66) % Lymph % (Auto) 18 L (24-44) % [place] % (Auto) 5 (2-6) % Eos % (Auto) 3 (2-4) % Baso % (Auto) 0 (0-1) % Sodium 142 (140-148) mmol/L Potassium 4.3 (3.6-5.2) mmol/L Chloride 106 (100-108) mmol/L Carbon Dioxide 28 (21-32) mmol/L Anion Gap 8.3 (5.0-14.0) mmol/L BUN 31 H (7-18) mg/dL Creatinine 1.4 H (0.8-1.3) mg/dL Est Cr Clr Drug Dosing 40.09 mL/min Estimated GFR (MDRD) 48 L (>60) Glucose 92 (74-106) mg/dL Calcium 8.2 L (8.5-10.1) mg/dL Total Bilirubin 0.4 (0.2-1.0) mg/dL AST 85 H D (15-37) U/L ALT 70 D (12-78) U/L Alkaline Phosphatase 165 H D (46-116) U/L Troponin I < 0.017 (0.000-0.056) ng/mL Total Protein 6.2 L (6.4-8.2) g/dL Albumin 3.1 L (3.4-5.0) g/dL Globulin 3.1 (2.3-3.5) g/dL Albumin/Globulin Ratio 1.0 L (1.2-2.2) Result Diagrams: 08/27/16 14:33 08/27/16 14:33 EKG INTERPRETATION EKG Date: 08/27/16 Rhythm: NSR Rate (beats/min): 68 [place]: LAD-left axis deviation P-wave: present QRS: LBBB (incomplete) ST-T: normal QT: normal Comparison: NA - no prior EKG EKG Interpretation Comments: Image personally reviewed - no acute findings *Q Meaningful Use (ADM) - VTE *Q VTE Criteria *Q: - VTE Risk Assess *Q Each Risk Factor Represents 1 Point: Minor Surgery Planned, Swollen Legs, Current Total Score 1 Point Risk Factors: 2 Each Risk Factor Represents 3 Points: Age 75 Years or Greater Total Score 3 Point Risk Factors: 3 - Stroke *Q Stroke Criteria *Q: - AMI *Q AMI Criteria *Q: - Problem List (1) Atypical chest pain SNOMED Code(s): 726500142 ICD Code: R07.89 - OTHER CHEST PAIN Status: Acute Current Visit: Yes (2) CAD (coronary artery disease) SNOMED Code(s): 41884821 ICD Code: I25.10 - ATHSCL HEART DISEASE OF [place] CORONARY ARTERY W/O ANG PCTRS Status: Chronic Current Visit: Yes Problem Details: hx of CABG Qualifiers: Coronary Disease-Associated Artery/Lesion type: [place] artery [place] vs. transplanted heart: [place] heart Associated angina: without angina Qualified Code(s): I25.10 - Atherosclerotic heart disease of [place] coronary artery without angina pectoris (3) Vascular dementia SNOMED Code(s): 726963008 ICD Code: F01.50 - VASCULAR DEMENTIA WITHOUT BEHAVIORAL DISTURBANCE Status : Chronic Current Visit: Yes Qualifiers: Dementia behavioral disturbance: with behavioral disturbance Qualified Code (s): F01.51 - Vascular dementia with behavioral disturbance Problem List Initiated/Reviewed/Updated: Yes Orders Last 24hrs: Active Orders 24 hr Category Date Time Status Patient Status Manage Transfer [TRANSFER] Routine ADT 08/27/16 16:41 Ordered EKG Documentation Completion [RC] ASDIRECTED Care 08/27/16 14:34 Active Resuscitation Status Routine Resus Stat 08/27/16 16:44 Ordered EKG 12 Lead [EK] Routine Ther 08/27/16 14:34 Ordered Assessment/Plan Comment:: Assessment and plan - Atypical chest pain - almost sounds gastrointestinal in nature but very difficult to determine because of the patient's poor recollection and dementia. He does have a history of a coronary artery bypass but does not seem to have any functional limitations. He does have a history of [place]'s esophagus and esophagitis or esophageal spasm certainly is a possibility. Risk factors for esophagitis include long-term steroids and nonsteroidal anti-inflammatory drug use. I don't that there is any sort of infection. Arrhythmia could be considered. He would benefit from expedited workup. -Cardiac monitoring -Repeat troponin -EGD in the morning (Dr. Kinsey has been consulted) -Continue PPI Coronary artery disease status post CABG - no recent active anginal sounding symptoms. Functional status has been acceptable. Tolerating medications at home. -Continue home meds Probable vascular dementia - Memory issues that have been the trigger did to chronic cerebrovascular disease in the past. -Continue all medications Maintenance issues - - DVT prophylaxis - mechanical - GI prophylaxis - PPI - Nutrition - regular diet - Valles catheter - not indicated CODE STATUS - patient wishes to BE full code. He would like information about POL for he and his daughter to review Admission justification - patient will be referred observation status for chest pain rule out an EGD in the morning Disposition - anticipate discharge home tomorrow, possibly with increased services at home Primary care physician - Sidney Gamble M.D.
[2016-08-27] MEDS ORDERED: Albuterol 0.083% 2.5 MG/3 ML Neb Soln NEB PRN (17:17)
[2016-08-27] MEDS ORDERED: Ondansetron 4 MG/2 ML SDV IV PRN (17:17)
[2016-08-27] MEDS ORDERED: traMADol 50 MG Tab PO PRN (17:17)
[2016-08-27] MEDS ORDERED: Benzonatate 100 MG Cap PO PRN (17:17)
[2016-08-27] MEDS ORDERED: Polyethylene Glycol 3350 Powder 17 GM Packet PO PRN (17:17)
[2016-08-27] MEDS ORDERED: Ondansetron 4 MG Tab.DIS PO PRN (17:17)
[2016-08-27] MEDS: Acetaminophen 325 MG Tab PO PRN ×2 (19:09→23:33)
[2016-08-27] MEDS: QUEtiapine 25 MG Tab PO SCH (20:40)
[2016-08-27] MEDS ORDERED: Mirtazapine 15 MG Tab PO SCH (21:00)
[2016-08-28] MEDS ORDERED: Pantoprazole 40 MG Tab.CR PO SCH (07:30)
[2016-08-28] MEDS ORDERED: Furosemide 40 MG Tab PO SCH (08:00)
[2016-08-28] MEDS ORDERED: Aspirin 325 MG Tab.EC PO SCH (09:00)
[2016-08-28] MEDS ORDERED: Clopidogrel 75 MG Tab PO SCH (09:00)
[2016-08-28] MEDS ORDERED: Non-Formulary Medication 1 Each (Aspirin [Aspirin] 325 MG) PO SCH (09:00)
[2016-08-28] MEDS ORDERED: atorvaSTATin 20 MG Tab PO SCH (09:00)
[2016-08-28] MEDS ORDERED: Pantoprazole 40 MG Vial IVPUSH SCH (09:00)
[2016-08-28] MEDS ORDERED: Citalopram 20 MG Tab PO SCH (09:00)
[2016-08-28] MEDS ORDERED: Propofol 200 MG/20 ML SDV ONE ×2 (11:03→12:50)
[2016-08-28] MEDS ORDERED: fentaNYL 100 MCG/2 ML SDV ONE ×2 (11:03→12:50)
[2016-08-28] MEDS: QUEtiapine 25 MG Tab PO SCH (14:39)
[2016-08-28 15:14] VITALS: BP 124/57
--- NOTE | 2016-08-28 15:47 | PCM.DCSUM1 ---
Discharge Summary - Hospital Course Brief History: 86-year-old male with history of coronary artery disease status post CABG, history of nonsteroidal and steroid use as well as vascular dementia who presented with atypical chest pain and was admitted for observation - Discharge Data Discharge Date: 08/28/16 Discharge Disposition: Home, Self-Care 01 Condition: Good - Discharge Diagnosis/Problem(s) (1) Chronic gastritis without bleeding SNOMED Code(s): 3747144 ICD Code: K29.50 - UNSPECIFIED CHRONIC GASTRITIS WITHOUT BLEEDING Status: Acute Current Visit: Yes Qualifiers: Gastritis type: other gastritis Qualified Code(s): K29.50 - Unspecified chronic gastritis without bleeding (2) Atypical chest pain SNOMED Code(s): 729277317 ICD Code: R07.89 - OTHER CHEST PAIN Status: Acute Current Visit: Yes (3) CAD (coronary artery disease) SNOMED Code(s): 61342831 ICD Code: I25.10 - ATHSCL HEART DISEASE OF [place] CORONARY ARTERY W/O ANG PCTRS Status: Chronic Current Visit: Yes Problem Details: hx of CABG Qualifiers: Coronary Disease-Associated Artery/Lesion type: [place] artery [place] vs. transplanted heart: [place] heart Associated angina: angina presence unspecified Qualified Code(s): I25.10 - Atherosclerotic heart disease of [place] coronary artery without angina pectoris (4) Vascular dementia SNOMED Code(s): 188898466 ICD Code: F01.50 - VASCULAR DEMENTIA WITHOUT BEHAVIORAL DISTURBANCE Status : Chronic Current Visit: Yes Qualifiers: Dementia behavioral disturbance: with behavioral disturbance Qualified Code (s): F01.51 - Vascular dementia with behavioral disturbance - Patient Summary/Data Consults: Consultations 08/27/16 17:17 Consult to Physician [CONS] Routine Consulting Provider: Pollo Kinsey Call Completed to Consulting Physician: Yes Reason for Consult: epigastric pain/atypical chest pain, consider EGD Person Notified: GORDO Date Notified: 08/27/16 Special Instructions: planning EGD in am, CARO aware Consult to [employer] [CONS] Routine Comment: Physician Instructions: Special Instructions: additional resources at home? dementia, recurrent visits for a variety of pain issues Planned Operative Procedure(s) after DC: EGD with Dr. Kinsye showed chronic gastritis Hospital Course: check presented to the emergency room by ambulance with an episode of severe but atypical chest pain. Workup in the emergency room was reassuring with no evidence for acute coronary syndrome but given the severity of his discomfort he was admitted for observation. Overnight following admission serial troponin levels were undetectable and his cardiac monitoring was undetectable. He has not had a recurrence of his pain. The afternoon following admission we did complete an EGD was some concern that this may be a gastrointestinal-type pain. The EGD showed some chronic gastritis with no evidence for hemorrhage. I suspect that his pain could be related to gastritis and possibly some esophageal reflux and possibly esophageal spasm. There is been no change in his functional status. No strong evidence for infection though he did have one low grade fever during the hospital stay. He feels well and is tolerating regular diet. He has been up and moving around well on his own. I believe that he is safe for outpatient management at this time. The plan is for him to go home with his daughter today. He will followup if his symptoms come back or do not continue to get better. I think it's extremely low likelihood but a stress test could be considered if he has additional episodes. I did increase his esomeprazole to twice daily with the hope that this will help heal his gastritis. - Patient Instructions Diet: Regular Diet as Tolerated Activity: As Tolerated Driving: Do Not Drive Showering/Bathing: May Shower Notify Provider of: Fever, Increased Pain, Nausea and/or Vomiting Other/Special Instructions: 1. You were in the hospital for management and evaluation of atypical chest pain. I suspect that your pain is caused by inflammation in your stomach and possibly mild acid reflux that causes a spasm in your esophagus. We did not find any evidence for a heart attack. I recommend that you increase your acid blocking medication esomeprazole (Nexium) 2 twice daily for 3 months and then return to once daily. Decreasing your stomach acid will help your stomach heal up. 2. Continue your other medications as previously prescribed. 3. Followup with Sidney Lorenzana next week if your symptoms are not continuing to get better or if they get worse. 4. Please seek medical attention if you develop fever greater than 101, have additional episodes of severe chest pain, sudden onset of shortness of breath or persistent vomiting. - Discharge Plan Prescriptions/Med Rec: Esomeprazole Magnesium 40 mg PO BID #60 capsule.dr Acosta Medications: Home Meds Citalopram [Citalopram HBr] 20 mg PO DAILY 12/27/15 [History] Clopidogrel [Plavix] 75 mg PO DAILY 12/27/15 [History] Furosemide [Lasix] 40 mg PO BID 12/27/15 [History] Multivit-Min/FA/Lycopene/Lut [Centrum Silver Tablet] 1 tab PO DAILY 05/07/16 [ History] Ibuprofen [Motrin] 600 mg PO Q6H PRN 06/09/16 [History] traMADol [Ultram] 50 mg PO Q6H PRN 06/09/16 [History] Methylprednisolone [IJD: Methylprednisolone] 4 mg PO DAILY 06/25/16 [History] Mirtazapine [Remeron] 7.5 mg PO BEDTIME 06/25/16 [History] QUEtiapine Fumarate [Seroquel] 12.5 mg PO BID 06/25/16 [History] Rivastigmine Tartrate [Rivastigmine] 3 mg PO BID 06/25/16 [History] atorvaSTATin Calcium [Atorvastatin Calcium] 80 mg PO DAILY 06/25/16 [History] Benzonatate [Tessalon Perles] 1 tab PO Q4H PRN 07/13/16 [History] Aspirin 325 mg PO DAILY 08/27/16 [History] Esomeprazole Magnesium 40 mg PO BID #60 capsule. 08/28/16 [Rx] Patient Handouts: Gastritis, Adult, [id number] Referrals: Sidney Lorenzana SOFTWARE ARCHITECT [Primary Care Provider] - (followup next week if symptoms do not continue to get better or they return) - Discharge Summary/Plan Comment DC Time >30 min.: No (25) - Patient Data Vitals - Most Recent: Last Vital Signs Temp 36.6 C 08/28/16 14:45 Pulse 57 L 08/28/16 15:00 Resp 16 08/28/16 15:00 BP 124/57 L 08/28/16 15:00 Pulse Ox 96 08/28/16 14:30 Weight - Most Recent: 80 kg I&O - Last 24 hours: Intake & Output 08/28/16 08/28/16 08/28/16 06:59 14:59 22:59 Intake Total 50 Output Total 700 Balance -700 50 Lab Results - Last 24 hrs: Laboratory Results - last 24 hr 08/27/16 08/27/16 08/28/16 Range/Units 18:16 22:00 05:54 WBC 5.3 (4.5-11.0) K/uL RBC 3.51 L (4.30-5.90) M/uL Hgb 10.7 L (12.0-15.0) g/dL Hct 33.4 L (40.0-54.0) % MCV 95 (80-98) fL MCH 31 (27-31) pg MCHC 32 (32-36) % Plt Count 233 (150-400) K/uL Sodium (140-148) mmol/L Potassium (3.6-5.2) mmol/L Chloride (100-108) mmol/L Carbon Dioxide (21-32) mmol/L Anion Gap (5.0-14.0) mmol/L BUN (7-18) mg/dL Creatinine (0.8-1.3) mg/dL Est Cr Clr Drug Dosing mL/min Estimated GFR (MDRD) (>60) Glucose (74-106) mg/dL Calcium (8.5-10.1) mg/dL Phosphorus (2.5-4.9) mg/dL Magnesium (1.8-2.4) mg/dL Troponin I < 0.017 (0.000-0.056) ng/mL Urine Color Yellow Urine Appearance Clear Urine pH 5.0 (4.5-8.0) Ur Specific [place] 1.020 (1.008-1.030) Urine Protein Negative (NEGATIVE) mg/dL Urine Glucose (UA) Normal (NEGATIVE) mg/dL Urine Ketones Negative (NEGATIVE) mg/dL Urine Occult Blood Negative (NEGATIVE) Urine Nitrite Negative (NEGAITVE) Urine Bilirubin Small (NEGATIVE) Urine Urobilinogen 1 (NORMAL) mg/dL Ur Leukocyte Esterase Negative (NEGATIVE) Urine RBC 0-5 (0-5) Urine WBC 0-5 (0-5) Ur Epithelial Cells Not seen Amorphous Sediment Not seen Urine Bacteria Not seen Urine Mucus Not seen 08/28/16 08/28/16 08/28/16 Range/Units 05:54 05:54 05:54 WBC (4.5-11.0) K/uL RBC (4.30-5.90) M/uL Hgb (12.0-15.0) g/dL Hct (40.0-54.0) % MCV (80-98) fL MCH (27-31) pg MCHC (32-36) % Plt Count (150-400) K/uL Sodium 140 (140-148) mmol/L Potassium 4.5 (3.6-5.2) mmol/L Chloride 108 (100-108) mmol/L Carbon Dioxide 26 (21-32) mmol/L Anion Gap 6.4 (5.0-14.0) mmol/L BUN 27 H (7-18) mg/dL Creatinine 1.4 H (0.8-1.3) mg/dL Est Cr Clr Drug Dosing 40.09 mL/min Estimated GFR (MDRD) 48 L (>60) Glucose 117 H (74-106) mg/dL Calcium 7.7 L (8.5-10.1) mg/dL Phosphorus 3.0 (2.5-4.9) mg/dL Magnesium 2.0 (1.8-2.4) mg/dL Troponin I (0.000-0.056) ng/mL Urine Color Urine Appearance Urine pH (4.5-8.0) Ur Specific [place] (1.008-1.030) Urine Protein (NEGATIVE) mg/dL Urine Glucose (UA) (NEGATIVE) mg/dL Urine Ketones (NEGATIVE) mg/dL Urine Occult Blood (NEGATIVE) Urine Nitrite (NEGAITVE) Urine Bilirubin (NEGATIVE) Urine Urobilinogen (NORMAL) mg/dL Ur Leukocyte Esterase (NEGATIVE) Urine RBC (0-5) Urine WBC (0-5) Ur Epithelial Cells Amorphous Sediment Urine Bacteria Urine Mucus Med Orders - Current: Current Medications Acetaminophen (Tylenol) 650 mg PO Q4H PRN PRN Reason: Pain (Mild 1-3)/fever Last Admin: 08/27/16 23:33 Dose: 650 mg Albuterol (Proventil Neb Soln) 2.5 mg NEB Q4H PRN PRN Reason: Shortness Of Breath/wheezing Aspirin (Ecotrin) 325 mg PO DAILY [facility] Last Admin: 08/28/16 14:38 Dose: Not Given Atorvastatin Calcium (Lipitor) 80 mg PO DAILY [facility] Last Admin: 08/28/16 14:38 Dose: Not Given Benzonatate (Tessalon Perles) 100 mg PO TID PRN PRN Reason: Cough Citalopram Hydrobromide (Celexa) 20 mg PO DAILY [facility] Last Admin: 08/28/16 14:37 Dose: Not Given Clopidogrel Bisulfate (Plavix) 75 mg PO DAILY [facility] Last Admin: 08/28/16 14:38 Dose: Not Given Furosemide (Lasix) 40 mg PO BIDDIURETIC [facility] Last Admin: 08/28/16 14:37 Dose: Not Given Methylprednisolone (Medrol) 4 mg PO DAILY [facility] Last Admin: 08/28/16 14:38 Dose: Not Given Mirtazapine (Remeron) 7.5 mg PO BEDTIME [facility] Last Admin: 08/27/16 20:39 Dose: 7.5 mg Ondansetron HCl (Zofran Odt) 4 mg PO Q6H PRN PRN Reason: Nausea able to take PO Ondansetron HCl (Zofran) 4 mg IV Q6H PRN PRN Reason: Nausea/Vomiting Pantoprazole Sodium (Protonix Iv) 40 mg IVPUSH Q12H [facility] Last Admin: 08/28/16 10:02 Dose: 40 mg Polyethylene Glycol (Miralax) 17 gm PO DAILY PRN PRN Reason: Constipation Quetiapine Fumarate (Seroquel) 12.5 mg PO BID [facility] Last Admin: 08/28/16 14:39 Dose: Not Given Rivastigmine (Exelon) 3 mg PO BID [facility] Last Admin: 08/28/16 14:38 Dose: Not Given Tramadol HCl (Ultram) 50 mg PO Q6H PRN PRN Reason: Pain Discontinued Medications Fentanyl (Sublimaze) Confirm Administered Dose 100 mcg .ROUTE .STK-MED ONE Stop: 08/28/16 11:04 Fentanyl (Sublimaze) Confirm Administered Dose 100 mcg .ROUTE .STK-MED ONE Stop: 08/28/16 12:51 Pantoprazole Sodium (Protonix) 40 mg PO ACBREAKFAST [facility] Propofol (Diprivan 20 Ml) Confirm Administered Dose 200 mg .ROUTE .STK-MED ONE Stop: 08/28/16 11:04 Propofol (Diprivan 20 Ml) Confirm Administered Dose 200 mg .ROUTE .STK-MED ONE Stop: 08/28/16 12:51 *Q Meaningful Use (DIS) - VTE *Q VTE Criteria *Q: - Stroke *Q Stroke Criteria *Q: - AMI *Q AMI Criteria *Q:
--- NOTE | 2016-08-31 07:47 | CONS ---
DATE OF SERVICE: 08/28/2016 REFERRING PHYSICIAN: CONSULTING PHYSICIAN: Selma Bustillo PA-C HISTORY OF PRESENT ILLNESS: Lance Fowler is an 86-year-old male. He was asked to be seen by Collin Gamble MD for abdominal pain. Lance had presented to the Emergency Room after a severe episode of chest pain. He does have dementia, but was in the ER, was clutching his chest, and was diaphoretic. He was referred to Surgery for an EGD with biopsies. PAST MEDICAL HISTORY: 1. Impaired vision. 2. Congenital septal defect. 3. Heart murmur. 4. High cholesterol. 5. Hypertension. 6. GERD. 7. Chronic renal insufficiency. 8. Chronic left hip pain. 9. History of a stroke. 10.Dementia. 11.Depression. 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 PAST SURGICAL HISTORY: Coronary artery bypass. FAMILY HISTORY: Mother had [place]. SOCIAL HISTORY: No smoking. He does not drink any caffeine or alcohol. MEDICATIONS: See EMR. ALLERGIES: SEE EMR. REVIEW OF SYSTEMS: The patient has dementia, so unable to complete. Medical records from ER were reviewed. PHYSICAL EXAMINATION: GENERAL: Lance Fowler is an 86-year-old male. VITAL SIGNS: Height is 6 feet and weight 176 pounds. TPR were 95.5, 67, 15, and blood pressure was 126/65. HEENT: Negative. NECK: Supple. HEART: Regular rate and rhythm. LUNGS: Clear. GASTROINTESTINAL: He does exhibit pain with palpation in the mid abdomen, in the periumbilical area. Slight distention. GENITOURINARY: Deferred. EXTREMITIES: Without peripheral edema. NEUROLOGICAL: Intact. SKIN: Without rash. ASSESSMENT: 1. Atypical chest pain. 2. Coronary artery disease. 3. Vascular dementia. PLAN: 1. Schedule and have consent signed for EGD with possible biopsies. IV and local sedation with Pollo Kinsey MD. Case to follow. 2. Check magnesium and phosphate on today's blood. 3. Protonix 40 mg IV b.i.d. We will evaluate p.r.n. Thank you for this consultation. Selma Bustillo PA-C /[id number]
--- NOTE | 2016-09-01 17:41 | OR ---
DATE OF PROCEDURE: 08/28/2016 PREOPERATIVE DIAGNOSIS: Recent chest pain suggestive of gastroesophageal reflux disease. POSTOPERATIVE DIAGNOSES: 1. Moderate-sized hiatal hernia with chronic esophagitis, possible [place] esophagus. 2. Mild antral gastritis. OPERATIVE PROCEDURE: 1. Esophagogastroduodenoscopy with:. a. Biopsy of esophagogastric junction for histologic evaluation. b. Biopsy of antrum for CLOtest. ANESTHESIA: IV sedation. INDICATION FOR PROCEDURE: This is an 86-year-old male admitted with some chest pain. He has a long history of gastroesophageal reflux disease and apparently a history of [place] esophagus as well. Presently, he has been on Nexium 40 mg a day. Plan is to proceed with an upper GI endoscopy with biopsies as indicated. Potential risks including bleeding and perforation were discussed, and the patient wishes to proceed. DETAILS OF PROCEDURE: The patient was taken to the operating room and placed in a left lateral decubitus position. IV sedation was administered after which the upper GI endoscope was passed orally through the length of the esophagus into the stomach with retroflexion view of the fundus, thereafter through the pyloric channel into the duodenum to the junction of the 3rd and 4th duodenal segments. Findings include normal hypopharynx, larynx, upper esophageal sphincter, and esophageal body. At the EG junction area, there was quite a long area of [place] esophagus extending probably in the range of 3-5 cm above the upper gastric folds and this was not associated with any plaquing or gross suggestion of neoplastic change. There was no stricturing at the EG junction. There was roughly a 2 cm hiatal hernia present. The scope was then passed into the stomach. Retroflexion revealed the hiatal hernia once again and within the stomach there was some mild patchy redness in the prepyloric area. Biopsy of this was obtained for CLOtest and the remainder of the pyloric channel and duodenal exams were unremarkable. At this point, biopsies were obtained from the esophagogastric junction and sent for histological evaluation. No bleeding from the biopsy sites was seen, and the procedure was then concluded. There were no overt complications. At this point, we will place the patient on a b.i.d. Protonix regimen and otherwise continue management per Dr. Gamble. Should he have persistent problems with chest pain while on the high-dose proton pump inhibitor use, then adding some topical agents such as Carafate may be useful. This would need to be in liquid form, so that it would coat the esophagus rather than pass through the esophagus and then dissolve in the stomach. Otherwise, the patient could conceivably undergo surgical intervention, but he would be very high risk for this and medical management would be far preferable. Pollo Kinsey MD /[id number]
== END 2016-08-28 16:32 | disposition home or self-care (01) ==
LOC: JP.ED 13:53 → JP.MS 16:41
PROVIDERS: ADMIT Internal Medicine; ATTEND Internal Medicine
PROC: 0DB48ZX Excision of Esophagogastric Junction, Via Natural or Artificial Opening Endoscopic, Diagnostic (ICD-10-PCS; principal; 2016-08-28)
PROC: 0DB68ZX Excision of Stomach, Via Natural or Artificial Opening Endoscopic, Diagnostic (ICD-10-PCS; 2016-08-28)
DX: K29.50 Unspecified chronic gastritis without bleeding (principal); F01.51 Vascular dementia, unspecified severity, with behavioral disturbance; R07.89 Other chest pain; E78.00 Pure hypercholesterolemia, unspecified; K21.9 Gastro-esophageal reflux disease without esophagitis; Z79.82 Long term (current) use of aspirin; Z79.899 Other long term (current) drug therapy; Z88.8 Allergy status to other drugs, medicaments and biological substances; Z91.018 Allergy to other foods; I25.810 Atherosclerosis of coronary artery bypass graft(s) without angina pectoris; F41.9 Anxiety disorder, unspecified; F32.9 Major depressive disorder, single episode, unspecified; I12.9 Hypertensive chronic kidney disease with stage 1 through stage 4 chronic kidney disease, or unspecified chronic kidney disease; N18.9 Chronic kidney disease, unspecified
CPT/HCPCS: 36415; 43239; 80048; 80053; 81001; 83735; 84100; 84484; 85025; 85027; 87081; 88305; 93005; 93010; 96374; 99217; 99220; 99285; A9270; C9113; G0378; J2704; J3010

== ENCOUNTER 2016-10-26 15:59 | Emergency (ER) | payer MEDICARE ==
--- NOTE | 2016-10-26 16:47 | EDM.PDOC ---
ED HPI GENERAL MEDICAL PROBLEM - General Chief Complaint: Neuro Symptoms/Deficits Stated Complaint: PASSED OUT Time Seen by Provider: 10/26/16 16:35 Source of Information: Reports: Patient, Family, RN Notes Reviewed History Limitations: Reports: Respiratory Distress - History of Present Illness INITIAL COMMENTS - FREE TEXT/NARRATIVE: 86-year-old gentleman presents emergency department today with a questionable syncopal event unresponsible events while sitting in the chair, this was witnessed by the home health nurse unfortunately he has significant dementia so it's difficult to obtain history from apparently he was minimally responsive for about 5 minutes there is no particular excessive motor activity but he was difficult to arouse, majority of this history is taken from family members as well as the review of systems - Related Data Allergies Allergy/AdvReac Type Severity Reaction Status Date / Time donepezil [From Aricept] Allergy Insomnia Verified 07/22/16 11:35 onion Allergy Other Verified 07/22/16 11:35 oxybutynin Allergy Swelling Verified 07/22/16 11:35 Home Meds: Home Meds Citalopram [Citalopram HBr] 20 mg PO DAILY 12/27/15 [History] Clopidogrel [Plavix] 75 mg PO DAILY 12/27/15 [History] Furosemide [Lasix] 40 mg PO BID 12/27/15 [History] Multivit-Min/FA/Lycopene/Lut [Centrum Silver Tablet] 1 tab PO DAILY 05/07/16 [ History] Ibuprofen [Motrin] 600 mg PO Q6H PRN 06/09/16 [History] traMADol [Ultram] 50 mg PO Q6H PRN 06/09/16 [History] Methylprednisolone [IJD: Methylprednisolone] 4 mg PO DAILY 06/25/16 [History] Mirtazapine [Remeron] 7.5 mg PO BEDTIME 06/25/16 [History] QUEtiapine Fumarate [Seroquel] 12.5 mg PO BID 06/25/16 [History] Rivastigmine Tartrate [Rivastigmine] 3 mg PO BID 06/25/16 [History] atorvaSTATin Calcium [Atorvastatin Calcium] 80 mg PO DAILY 06/25/16 [History] Benzonatate [Tessalon Perles] 1 tab PO Q4H PRN 07/13/16 [History] Aspirin 325 mg PO DAILY 08/27/16 [History] Esomeprazole Magnesium 40 mg PO BID #60 capsule. 08/28/16 [Rx] Past Medical History HEENT History: Reports: Impaired Vision Cardiovascular History: Reports: Congenital Septal Defect, Heart Murmur, High Cholesterol, Hypertension Gastrointestinal History: Reports: GERD Genitourinary History: Reports: Chronic Renal Insuffiency Musculoskeletal History: Reports: Other (See Below) Other Musculoskeletal History: chronic left hip pain Neurological History: Reports: TIA Other Neuro History: daughter states patient has had a stroke Psychiatric History: Reports: Anxiety, Dementia, Depression Oncologic (Cancer) History: Reports: Other (See Below) Other Oncologic History: 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 - Infectious Disease History Infectious Disease History: Reports: Chicken Pox, Measles, Mumps - Past Surgical History Cardiovascular Surgical History: Reports: Coronary Artery Bypass Social & Family History - Family History Cardiac: Reports: [place] - Tobacco Use Smoking Status *Q: Never Smoker Second Hand Smoke Exposure: No - Caffeine Use Caffeine Use: Reports: None - Recreational Drug Use Recreational Drug Use: No ED ROS GENERAL - Review of Systems Review Of Systems: See Below Constitutional: Reports: No Symptoms HEENT: Reports: No Symptoms Respiratory: Reports: No Symptoms Cardiovascular: Reports: No Symptoms GI/Abdominal: Reports: No Symptoms : Reports: No Symptoms Musculoskeletal: Reports: No Symptoms Skin: Reports: No Symptoms Neurological: Reports: Syncope ED EXAM, GENERAL - Physical Exam Exam: See Below Exam Limited By: Physical Impairment General Appearance: Alert, No Apparent Distress Eye Exam: Bilateral Eye: Normal Inspection Respiratory/Chest: No Respiratory Distress, Lungs Clear, Normal Breath Sounds, No Accessory Muscle Use, Chest Non-Tender Cardiovascular: Normal Peripheral Pulses, Regular Rate, Rhythm, No Edema, No Gallop, No JVD, No Murmur, No Rub GI/Abdominal: Normal Bowel Sounds, Soft, Non-Tender Course - Vital Signs Last Recorded V/S: Last Vital Signs Temp 97.0 F 10/26/16 16:24 Pulse 64 10/26/16 17:02 Resp 16 10/26/16 17:02 BP 135/90 10/26/16 17:02 Pulse Ox 90 L 10/26/16 17:02 - Orders/Labs/Meds Orders: Active Orders 24 hr Category Date Time Status EKG Documentation Completion [RC] ASDIRECTED Care 10/26/16 16:48 Active EKG 12 Lead [EK] Stat Ther 10/26/16 16:47 Ordered Labs: Laboratory Tests 10/26/16 10/26/16 Range/Units 16:47 16:47 WBC 6.3 (4.5-11.0) K/uL RBC 3.57 L (4.30-5.90) M/uL Hgb 10.8 L (12.0-15.0) g/dL Hct 33.5 L (40.0-54.0) % MCV 94 (80-98) fL MCH 30 (27-31) pg MCHC 32 (32-36) % Plt Count 196 (150-400) K/uL Neut % (Auto) 39 (36-66) % Lymph % (Auto) 48 H (24-44) % Young % (Auto) 8 H (2-6) % Eos % (Auto) 5 H (2-4) % Baso % (Auto) 0 (0-1) % Sodium 136 L (140-148) mmol/L Potassium 4.6 (3.6-5.2) mmol/L Chloride 105 (100-108) mmol/L Carbon Dioxide 27 (21-32) mmol/L Anion Gap 8.6 (5.0-14.0) mmol/L BUN 29 H (7-18) mg/dL Creatinine 1.5 H (0.8-1.3) mg/dL Est Cr Clr Drug Dosing 37.36 mL/min Estimated GFR (MDRD) 44 L (>60) Glucose 94 (74-106) mg/dL Calcium 8.4 L (8.5-10.1) mg/dL Departure - Departure Time of Disposition: 18:00 Disposition: Home, Self-Care 01 Condition: Fair Clinical Impression: Syncope Qualifiers: Syncope type: unspecified Qualified Code(s): R55 - Syncope and collapse Forms: ED Department Discharge Additional Instructions: Please followup with your primary care provider in [3-5] days if not better, please call return to the emergency department with worsening of symptoms. - My Orders Last 24 Hours: My Active Orders 10/26/16 16:47 EKG 12 Lead [EK] Stat 10/26/16 16:48 EKG Documentation Completion [RC] ASDIRECTED - Assessment/Plan Last 24 Hours: My Active Orders 10/26/16 16:47 EKG 12 Lead [EK] Stat 10/26/16 16:48 EKG Documentation Completion [RC] ASDIRECTED Plan: Assessment Acuity = acute Site and laterality = syncopal event comp Karely patient with known history of vascular dementia Etiology = unclear etiology Manifestations = none Location of injury = home Lab values = hemoglobin low at 10.8 consistent normochromic anemia sodium low at 136 consistent hyponatremia creatinine elevated at 1.5 consistent chronic renal failure stage G IIIB EKG demonstrates junctional rhythm incomplete left bundle branch block this is the same as August 2016 Plan I did review lab EKG results with him and his family at this time they're going do watchful waiting surly they think about possible seizure activity however it' s unclear at this time they're going to continue to follow with his neurologist family was in agreement with the plan all questions were answered, they were instructed to return to the emergency department or call for worsening symptoms. This note was dictated using [employer] voice recognition software please call with any questions.
[2016-10-26 17:03] VITALS: BP 135/90
== END 2016-10-26 18:15 | disposition home or self-care (01) ==
LOC: JP.ED 15:59
DX: R55 Syncope and collapse (principal); I12.9 Hypertensive chronic kidney disease with stage 1 through stage 4 chronic kidney disease, or unspecified chronic kidney disease; N18.9 Chronic kidney disease, unspecified; K21.9 Gastro-esophageal reflux disease without esophagitis; F41.9 Anxiety disorder, unspecified; Z95.1 Presence of aortocoronary bypass graft; F32.9 Major depressive disorder, single episode, unspecified; E78.00 Pure hypercholesterolemia, unspecified; Z86.73 Personal history of transient ischemic attack (TIA), and cerebral infarction without residual deficits; Z79.899 Other long term (current) drug therapy; Z91.018 Allergy to other foods; Z88.8 Allergy status to other drugs, medicaments and biological substances; Z85.828 Personal history of other malignant neoplasm of skin; Z79.82 Long term (current) use of aspirin
CPT/HCPCS: 36415; 80048; 85025; 93005; 93010; 99282; 99284-25

== ENCOUNTER 2016-12-03 13:21 | Emergency (ER) | payer MEDICARE ==
--- NOTE | 2016-12-03 13:43 | EDM.PDOC ---
ED HPI GENERAL MEDICAL PROBLEM - General Chief Complaint: Neurological Problem Stated Complaint: SLURRED SPEECH, LIGHTHEADED Time Seen by Provider: 12/03/16 13:43 Source of Information: Reports: Patient History Limitations: Reports: No Limitations - History of Present Illness INITIAL COMMENTS - FREE TEXT/NARRATIVE: Pt arrived with a history of facial weakness and slurring of his speech. He has had 2 episodes since today. He was also confused. Onset: Sudden Duration: Hour(s): Location: Reports: Face, Upper Extremity, Left, Other (pt has had numbness in the left arm off and on. ) Associated Symptoms: Reports: Confusion - Related Data Allergies Allergy/AdvReac Type Severity Reaction Status Date / Time donepezil [From Aricept] Allergy Insomnia Verified 12/03/16 14:17 onion Allergy Other Verified 12/03/16 14:17 oxybutynin Allergy Swelling Verified 12/03/16 14:17 Home Meds: Home Meds Citalopram [Citalopram HBr] 20 mg PO DAILY 12/27/15 [History] Clopidogrel [Plavix] 75 mg PO DAILY 12/27/15 [History] Furosemide [Lasix] 40 mg PO BEDTIME 12/27/15 [History] Multivit-Min/FA/Lycopene/Lut [Centrum Silver Tablet] 1 tab PO DAILY 05/07/16 [ History] Ibuprofen [Motrin] 600 mg PO Q6H PRN 06/09/16 [History] traMADol [Ultram] 50 mg PO Q6H PRN 06/09/16 [History] Methylprednisolone [IJD: Methylprednisolone] 4 mg PO DAILY 06/25/16 [History] Mirtazapine [Remeron] 15 mg PO BEDTIME 06/25/16 [History] QUEtiapine Fumarate [Seroquel] 12.5 mg PO BID 06/25/16 [History] Rivastigmine Tartrate [Rivastigmine] 3 mg PO BID 06/25/16 [History] atorvaSTATin Calcium [Atorvastatin Calcium] 80 mg PO DAILY 06/25/16 [History] Aspirin 325 mg PO DAILY 08/27/16 [History] Esomeprazole Magnesium [Nexium] 40 mg PO BID 12/03/16 [History] Past Medical History HEENT History: Reports: Impaired Vision Cardiovascular History: Reports: Congenital Septal Defect, Heart Murmur, High Cholesterol, Hypertension Gastrointestinal History: Reports: GERD Genitourinary History: Reports: Chronic Renal Insuffiency Musculoskeletal History: Reports: Other (See Below) Other Musculoskeletal History: chronic left hip pain Neurological History: Reports: TIA Other Neuro History: daughter states patient has had a stroke Psychiatric History: Reports: Anxiety, Dementia, Depression Oncologic (Cancer) History: Reports: Other (See Below) Other Oncologic History: 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 - Infectious Disease History Infectious Disease History: Reports: Chicken Pox, Measles, Mumps - Past Surgical History Cardiovascular Surgical History: Reports: Coronary Artery Bypass Social & Family History - Family History Cardiac: Reports: [place] - Tobacco Use Smoking Status *Q: Never Smoker Second Hand Smoke Exposure: No - Caffeine Use Caffeine Use: Reports: None - Recreational Drug Use Recreational Drug Use: No ED ROS GENERAL - Review of Systems Review Of Systems: See Below Constitutional: Reports: No Symptoms HEENT: Reports: No Symptoms Respiratory: Reports: No Symptoms Cardiovascular: Reports: No Symptoms Endocrine: Reports: No Symptoms GI/Abdominal: Reports: No Symptoms : Reports: No Symptoms Musculoskeletal: Reports: No Symptoms Skin: Reports: No Symptoms Neurological: Reports: Confusion, Numbness, Change in Speech ED EXAM, NEURO - Physical Exam Exam: See Below Text/Narrative:: pt arrived with a episode of slurring of his speech ans numbness in the left arm. He had facial weakness. These episodes have come and gone twice. Exam Limited By: No Limitations General Appearance: Alert, No Apparent Distress, Anxious, Other (pupils are equal and reactive. ) Ears: Normal TMs Nose: Normal Inspection Throat/Mouth: Normal Inspection Head Exam: Atraumatic Neck: Normal Inspection Respiratory/Chest: No Respiratory Distress Cardiovascular: Regular Rate, Rhythm GI/Abdominal: Soft, Non-Tender Rectal (Males) Exam: Deferred Neurological: Alert, Oriented x 3, Other (pt did have confusion earlier, He had a brief episode of facial weakness. He also had a brief episode of slurring of the speech and numbness in his hand. ) Extremities: Normal Inspection, Other ( numbness in the left arm. ) Course - Vital Signs Last Recorded V/S: Last Vital Signs Temp 96.5 C H 12/03/16 13:38 Pulse 63 12/03/16 13:54 Resp 15 12/03/16 13:54 BP 143/72 H 12/03/16 13:54 Pulse Ox 98 12/03/16 13:54 - Orders/Labs/Meds Orders: Active Orders 24 hr Category Date Time Status EKG Documentation Completion [RC] ASDIRECTED Care 12/03/16 13:43 Active EKG 12 Lead [EK] Routine Ther 12/03/16 13:43 Ordered Labs: Laboratory Tests 12/03/16 12/03/16 12/03/16 Range/Units 13:46 13:53 13:53 WBC 5.9 (4.5-11.0) K/uL RBC 3.61 L (4.30-5.90) M/uL Hgb 11.1 L (12.0-15.0) g/dL Hct 33.9 L (40.0-54.0) % MCV 94 (80-98) fL MCH 31 (27-31) pg MCHC 33 (32-36) % Plt Count 152 (150-400) K/uL Neut % (Auto) 42 (36-66) % Lymph % (Auto) 45 H (24-44) % [place] % (Auto) 10 H (2-6) % Eos % (Auto) 4 (2-4) % Baso % (Auto) 1 (0-1) % Sodium 140 (140-148) mmol/L Potassium 3.9 (3.6-5.2) mmol/L Chloride 107 (100-108) mmol/L Carbon Dioxide 27 (21-32) mmol/L Anion Gap 6.2 (5.0-14.0) mmol/L BUN 34 H (7-18) mg/dL Creatinine 1.6 H (0.8-1.3) mg/dL Est Cr Clr Drug Dosing 35.03 mL/min Estimated GFR (MDRD) 41 L (>60) Glucose 97 (74-106) mg/dL Calcium 8.4 L (8.5-10.1) mg/dL Total Bilirubin 0.4 (0.2-1.0) mg/dL AST 26 (15-37) U/L ALT 28 (12-78) U/L Alkaline Phosphatase 88 (46-116) U/L Troponin I (0.000-0.056) ng/mL Total Protein 7.0 (6.4-8.2) g/dL Albumin 3.4 (3.4-5.0) g/dL Globulin 3.6 H (2.3-3.5) g/dL Albumin/Globulin Ratio 0.9 L (1.2-2.2) Urine Color Yellow Urine Appearance Clear Urine pH 5.0 (4.5-8.0) Ur Specific [place] 1.010 (1.008-1.030) Urine Protein Negative (NEGATIVE) mg/dL Urine Glucose (UA) Normal (NEGATIVE) mg/dL Urine Ketones Negative (NEGATIVE) mg/dL Urine Occult Blood Negative (NEGATIVE) Urine Nitrite Negative (NEGAITVE) Urine Bilirubin Negative (NEGATIVE) Urine Urobilinogen Normal (NORMAL) mg/dL Ur Leukocyte Esterase Negative (NEGATIVE) Urine RBC 0-5 (0-5) Urine WBC 0-5 (0-5) Ur Epithelial Cells Rare Amorphous Sediment Few Urine Bacteria Not seen Urine Mucus Few 12/03/16 Range/Units 13:53 WBC (4.5-11.0) K/uL RBC (4.30-5.90) M/uL Hgb (12.0-15.0) g/dL Hct (40.0-54.0) % MCV (80-98) fL MCH (27-31) pg MCHC (32-36) % Plt Count (150-400) K/uL Neut % (Auto) (36-66) % Lymph % (Auto) (24-44) % [place] % (Auto) (2-6) % Eos % (Auto) (2-4) % Baso % (Auto) (0-1) % Sodium (140-148) mmol/L Potassium (3.6-5.2) mmol/L Chloride (100-108) mmol/L Carbon Dioxide (21-32) mmol/L Anion Gap (5.0-14.0) mmol/L BUN (7-18) mg/dL Creatinine (0.8-1.3) mg/dL Est Cr Clr Drug Dosing mL/min Estimated GFR (MDRD) (>60) Glucose (74-106) mg/dL Calcium (8.5-10.1) mg/dL Total Bilirubin (0.2-1.0) mg/dL AST (15-37) U/L ALT (12-78) U/L Alkaline Phosphatase (46-116) U/L Troponin I < 0.017 (0.000-0.056) ng/mL Total Protein (6.4-8.2) g/dL Albumin (3.4-5.0) g/dL Globulin (2.3-3.5) g/dL Albumin/Globulin Ratio (1.2-2.2) Urine Color Urine Appearance Urine pH (4.5-8.0) Ur Specific [place] (1.008-1.030) Urine Protein (NEGATIVE) mg/dL Urine Glucose (UA) (NEGATIVE) mg/dL Urine Ketones (NEGATIVE) mg/dL Urine Occult Blood (NEGATIVE) Urine Nitrite (NEGAITVE) Urine Bilirubin (NEGATIVE) Urine Urobilinogen (NORMAL) mg/dL Ur Leukocyte Esterase (NEGATIVE) Urine RBC (0-5) Urine WBC (0-5) Ur Epithelial Cells Amorphous Sediment Urine Bacteria Urine Mucus - Re-Assessments/Exams Free Text/Narrative Re-Assessment/Exam: 12/03/16 15:05 cat scn of the heead neg. labs were normal ekg showed a sinus rhythm. Departure - Departure Time of Disposition: 15:06 Disposition: Home, Self-Care 01 Condition: Fair Clinical Impression: TIA (transient ischemic attack) - Discharge Information Forms: ED Department Discharge Care Plan Goals: Transfer to [facility]. - My Orders Last 24 Hours: My Active Orders 12/03/16 13:43 EKG Documentation Completion [RC] ASDIRECTED EKG 12 Lead [EK] Routine - Assessment/Plan Last 24 Hours: My Active Orders 12/03/16 13:43 EKG Documentation Completion [RC] ASDIRECTED EKG 12 Lead [EK] Routine
--- NOTE | 2016-12-03 14:22 | CT ---
CT head without contrast. Indication: Confusion and speech problems. total DOP 793. Comparison: 12/29/2015. Findings: There is a hypodensities surrounding the deep and periventricular white matter which are m oderate. No hemorrhage. No subacute territorial infarct. No mass effect or midline shift. Moderate g lobal atrophy. The calvarium is intact. Ethmoidal mucosal thickening. Mastoid air cells are clear on the right. There is some sclerosis within the right mastoidal cells similar. Impression: 1. Stable head CT 2. Hypodensities are in the deep and periventricular white matter can indicate chronic small vessel ischemic disease.
[2016-12-03 15:29] VITALS: BP 133/62
== END 2016-12-03 15:51 | disposition home or self-care (01) ==
LOC: JP.ED 13:21
DX: G45.9 Transient cerebral ischemic attack, unspecified (principal); I12.9 Hypertensive chronic kidney disease with stage 1 through stage 4 chronic kidney disease, or unspecified chronic kidney disease; F03.90 Unspecified dementia, unspecified severity, without behavioral disturbance, psychotic disturbance, mood disturbance, and anxiety; N18.9 Chronic kidney disease, unspecified; E78.00 Pure hypercholesterolemia, unspecified; Q21.9 Congenital malformation of cardiac septum, unspecified; F41.9 Anxiety disorder, unspecified; F32.9 Major depressive disorder, single episode, unspecified; K21.9 Gastro-esophageal reflux disease without esophagitis; Z85.828 Personal history of other malignant neoplasm of skin; Z95.1 Presence of aortocoronary bypass graft; Z79.82 Long term (current) use of aspirin; Z79.899 Other long term (current) drug therapy; Z91.018 Allergy to other foods; Z88.8 Allergy status to other drugs, medicaments and biological substances
CPT/HCPCS: 36415; 70450; 70450-26; 80053; 81001; 82962; 84484; 85025; 93005; 93010; 99285

== ENCOUNTER 2016-12-31 16:10 | Emergency (ER) | payer MEDICARE ==
[2016-12-31 16:37] VITALS: BP 134/89
--- NOTE | 2016-12-31 17:29 | EDM.PDOC ---
ED HPI GENERAL MEDICAL PROBLEM - General Chief Complaint: Neuro Symptoms/Deficits Stated Complaint: ILLNESS,TIA Time Seen by Provider: 12/31/16 17:00 Source of Information: Reports: Family History Limitations: Reports: Other (Patient himself is very confused chronically) - History of Present Illness INITIAL COMMENTS - FREE TEXT/NARRATIVE: 78-year-old male who had an episode today of facial drooping bilaterally, numbness in his arms, and aphasia. He has very advanced dementia, he has had neurologic workups and a transfer to [place] within the last 3 weeks for a "TIA". He has had an extensive workup with CTs, MRI and labs. I read his last neurology consultation which was just a few days ago, it was explained to the family that he will have repeated neurologic changes and recurring deficits but he wants no treatment and it is something that they are just going to have to observe and wait to see if it resolves. Today the daughter was uncomfortable waiting and asked an EMT friend what she should be and she told her to bring him in. On arrival he looks fine, is talkative, has no apparent neurologic deficits or symptoms. His symptoms are often related to anxiety, dementia or another source and not ischemic. Onset: Unknown/Unsure Severity: Moderate Associated Symptoms: Reports: Headaches (Complained he had a frontal headache, that also is gone). Denies: Fever/Chills - Related Data Allergies Allergy/AdvReac Type Severity Reaction Status Date / Time donepezil [From Aricept] Allergy Insomnia Verified 12/03/16 14:17 onion Allergy Other Verified 12/03/16 14:17 oxybutynin Allergy Swelling Verified 12/03/16 14:17 Home Meds: Home Meds Citalopram [Citalopram HBr] 20 mg PO DAILY 12/27/15 [History] Clopidogrel [Plavix] 75 mg PO DAILY 12/27/15 [History] Furosemide [Lasix] 40 mg PO BEDTIME 12/27/15 [History] Multivit-Min/FA/Lycopene/Lut [Centrum Silver Tablet] 1 tab PO DAILY 05/07/16 [ History] Ibuprofen [Motrin] 600 mg PO Q6H PRN 06/09/16 [History] traMADol [Ultram] 50 mg PO Q6H PRN 06/09/16 [History] Methylprednisolone [IJD: Methylprednisolone] 4 mg PO DAILY 06/25/16 [History] Mirtazapine [Remeron] 15 mg PO BEDTIME 06/25/16 [History] QUEtiapine Fumarate [Seroquel] 12.5 mg PO BID 06/25/16 [History] Rivastigmine Tartrate [Rivastigmine] 3 mg PO BID 06/25/16 [History] atorvaSTATin Calcium [Atorvastatin Calcium] 80 mg PO DAILY 06/25/16 [History] Aspirin 325 mg PO DAILY 08/27/16 [History] Esomeprazole Magnesium [Nexium] 40 mg PO BID 12/03/16 [History] Past Medical History HEENT History: Reports: Impaired Vision Cardiovascular History: Reports: Congenital Septal Defect, Heart Murmur, High Cholesterol, Hypertension Gastrointestinal History: Reports: GERD Genitourinary History: Reports: Chronic Renal Insuffiency Musculoskeletal History: Reports: Other (See Below) Other Musculoskeletal History: chronic left hip pain Neurological History: Reports: TIA Other Neuro History: daughter states patient has had a stroke Psychiatric History: Reports: Anxiety, Dementia, Depression Oncologic (Cancer) History: Reports: Other (See Below) Other Oncologic History: 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 - Infectious Disease History Infectious Disease History: Reports: Chicken Pox, Measles, Mumps - Past Surgical History Cardiovascular Surgical History: Reports: Coronary Artery Bypass Social & Family History - Family History Cardiac: Reports: [place] - Tobacco Use Smoking Status *Q: Never Smoker Second Hand Smoke Exposure: No - Caffeine Use Caffeine Use: Reports: Coffee - Recreational Drug Use Recreational Drug Use: No ED ROS GENERAL - Review of Systems Review Of Systems: See Below Constitutional: Denies: Fever, Chills HEENT: Reports: No Symptoms Respiratory: Denies: Shortness of Breath Cardiovascular: Reports: Chest Pain (Was complaining of some chest pain earlier today which is a reoccurring complaint for him) GI/Abdominal: Reports: Decreased Appetite. Denies: Abdominal Pain, Nausea, Vomiting Skin: Reports: No Symptoms Psychiatric: Reports: Other (Has a chronically labile emotional state, sometimes angry and agitated) ED EXAM, NEURO - Physical Exam Exam: See Below Exam Limited By: Other (Chronic confusion is baseline, patient is very cooperative) General Appearance: Alert, No Apparent Distress Eye Exam: Bilateral Eye: EOMI Throat/Mouth: Other (No facial drooping, speech is clear) Head Exam: Atraumatic Neck: Supple Respiratory/Chest: No Respiratory Distress Neurological: Alert, No Motor/Sensory Deficits Psychiatric: Other (Cheerful and cooperative at this time) Skin Exam: Warm, Dry Course - Vital Signs Last Recorded V/S: Last Vital Signs Temp 96.9 F 12/31/16 16:34 Pulse 64 12/31/16 16:34 Resp 18 12/31/16 16:34 BP 134/89 12/31/16 16:34 Pulse Ox - Re-Assessments/Exams Free Text/Narrative Re-Assessment/Exam: 12/31/16 17:28 Had a long discussion with the patient and his daughter about placement into a care facility so she can have help with his care but she refused. I reiterated that he will have spells of waxing and waning neurologic deficits with his chronic problems which are untreatable. He is back to baseline and no further workup is needed. Departure - Departure Time of Disposition: 18:18 Disposition: Home, Self-Care 01 Condition: Fair Clinical Impression: Paresthesia of left upper limb TIA (transient ischemic attack) Qualifiers: Transient cerebral ischemia type: unspecified Qualified Code(s): G45.9 - Transient cerebral ischemic attack, unspecified - Discharge Information Instructions: Transient Ischemic Attack, [place] Referrals: Sidney Lorenzana NP [Primary Care Provider] - Forms: ED Department Discharge Care Plan Goals: Continue current medications, watchful waiting with symptoms occur and return if they don't resolve after a few hours.
== END 2016-12-31 18:17 | disposition home or self-care (01) ==
LOC: JP.ED 16:10
DX: G45.9 Transient cerebral ischemic attack, unspecified (principal); E78.00 Pure hypercholesterolemia, unspecified; K21.9 Gastro-esophageal reflux disease without esophagitis; I12.9 Hypertensive chronic kidney disease with stage 1 through stage 4 chronic kidney disease, or unspecified chronic kidney disease; N18.9 Chronic kidney disease, unspecified; F41.9 Anxiety disorder, unspecified; F03.90 Unspecified dementia, unspecified severity, without behavioral disturbance, psychotic disturbance, mood disturbance, and anxiety; Z88.8 Allergy status to other drugs, medicaments and biological substances; Z91.018 Allergy to other foods; Z79.82 Long term (current) use of aspirin; Z79.02 Long term (current) use of antithrombotics/antiplatelets; Z79.899 Other long term (current) drug therapy; Z85.828 Personal history of other malignant neoplasm of skin; Z95.1 Presence of aortocoronary bypass graft
CPT/HCPCS: 99284

== ENCOUNTER 2017-02-24 18:34 | Emergency (ER) | payer MEDICARE ==
[2017-02-24] MEDS ORDERED: SUMAtriptan 6 MG/0.5 ML SDV SUBCUT ONE (20:16)
[2017-02-24] MEDS ORDERED: Prochlorperazine 10 MG/2 ML SDV IM ONE (20:16)
[2017-02-24 21:13] VITALS: BP 143/68
--- NOTE | 2017-02-24 21:40 | EDM.PDOC ---
ED HPI GENERAL MEDICAL PROBLEM - General Chief Complaint: General Stated Complaint: CONFUSION Time Seen by Provider: 02/24/17 20:00 Source of Information: Reports: Patient, Family (daughter), RN Notes Reviewed History Limitations: Reports: Other (dementia and memory loss) - History of Present Illness INITIAL COMMENTS - FREE TEXT/NARRATIVE: .03 brought in by his daughter Chief complaint Right-sided headache History of present illness 78-year-old male with dementia who stays with his daughter, history of stroke a few years ago and several TIAs since he moved here, no history of heart disease but he did have open heart surgery on her heart valve. Has had recurrent headaches infrequently but they've been more common in the last 2 months. Has been prescribed oxycodone for it for the last few weeks, up to 1 tablet every 6 hours. Initially was helpful but no longer seems to last very long. Headaches have usually been in the right eye area but now they're extending across the forehead a bit. Tonight's was associated with payment caused wincing of his face, right eye droop right eye redness in right eye tearing. He has described as throbbing to her. In general he is a poor historian and doesn't remember many details. Because complaining of nausea but does not vomit with his headaches. Also gets tremors in his hands with his headaches. Usually [place] with a cane this current headache is been present for several hours. Headache Pain Score (Numeric/FACES): 4 - Related Data Allergies Allergy/AdvReac Type Severity Reaction Status Date / Time donepezil [From Aricept] Allergy Insomnia Verified 12/03/16 14:17 onion Allergy Other Verified 12/03/16 14:17 oxybutynin Allergy Swelling Verified 12/03/16 14:17 Home Meds: Home Meds Citalopram [Citalopram HBr] 20 mg PO DAILY 12/27/15 [History] Clopidogrel [Plavix] 75 mg PO DAILY 12/27/15 [History] Furosemide [Lasix] 40 mg PO BEDTIME 12/27/15 [History] Multivit-Min/FA/Lycopene/Lut [Centrum Silver Tablet] 1 tab PO DAILY 05/07/16 [ History] Ibuprofen [Motrin] 600 mg PO Q6H PRN 06/09/16 [History] Methylprednisolone [IJD: Methylprednisolone] 4 mg PO DAILY 06/25/16 [History] Mirtazapine [Remeron] 15 mg PO BEDTIME 06/25/16 [History] QUEtiapine Fumarate [Seroquel] 12.5 mg PO BID 06/25/16 [History] Rivastigmine Tartrate [Rivastigmine] 3 mg PO BID 06/25/16 [History] atorvaSTATin Calcium [Atorvastatin Calcium] 80 mg PO DAILY 06/25/16 [History] Aspirin 325 mg PO DAILY 08/27/16 [History] Esomeprazole Magnesium [Nexium] 40 mg PO BID 12/03/16 [History] Promethazine [Phenergan] 25 mg PO Q6H PRN #15 tab 02/24/17 [Rx] Past Medical History HEENT History: Reports: Impaired Vision Cardiovascular History: Reports: Congenital Septal Defect, Heart Murmur, High Cholesterol, Hypertension Gastrointestinal History: Reports: GERD Genitourinary History: Reports: Chronic Renal Insuffiency Musculoskeletal History: Reports: Other (See Below) Other Musculoskeletal History: chronic left hip pain Neurological History: Reports: TIA Other Neuro History: daughter states patient has had a stroke Psychiatric History: Reports: Anxiety, Dementia, Depression Oncologic (Cancer) History: Reports: Other (See Below) Other Oncologic History: 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 - Infectious Disease History Infectious Disease History: Reports: Chicken Pox, Measles, Mumps - Past Surgical History Cardiovascular Surgical History: Reports: Coronary Artery Bypass Social & Family History - Family History Cardiac: Reports: [place] - Tobacco Use Smoking Status *Q: Never Smoker Second Hand Smoke Exposure: No - Caffeine Use Caffeine Use: Reports: Coffee - Recreational Drug Use Recreational Drug Use: No ED ROS GENERAL - Review of Systems Review Of Systems: Unable To Obtain (dementia, poor memory) ED EXAM, GENERAL - Physical Exam Exam: See Below Exam Limited By: No Limitations General Appearance: Alert, No Apparent Distress, Other (patient appears calm and is pleasant and alert and vital signs are normal) Eye Exam: Bilateral Eye: EOMI, Normal Inspection Ears: Normal External Exam, Normal Canal Nose: Normal Inspection, Normal Mucosa Throat/Mouth: Normal Inspection, Normal Oropharynx Neck: Normal Inspection, Supple, Non-Tender Respiratory/Chest: No Respiratory Distress, No Accessory Muscle Use Cardiovascular: Normal Peripheral Pulses, Regular Rate, Rhythm GI/Abdominal: Non-Tender Extremities: Normal Inspection, Non-Tender Neurological: Alert, No Motor/Sensory Deficits, Confused, Memory Loss Recent Events Skin Exam: Warm, Dry, Intact, Normal Color, No Rash Course - Vital Signs Last Recorded V/S: Last Vital Signs Temp 35.9 C 02/24/17 19:10 Pulse 58 L 02/24/17 21:12 Resp 16 02/24/17 21:12 BP 143/68 H 02/24/17 21:12 Pulse Ox 96 02/24/17 21:12 - Orders/Labs/Meds Meds: Medications Discontinued Medications Generic Name Dose Route Start Last Admin Trade Name Meredith PRN Reason Stop Dose Admin Prochlorperazine Edisylate 2.5 mg 02/24/17 20:16 02/24/17 21:43 Compazine IM 02/24/17 20:17 Not Given ONETIME ONE Sumatriptan Succinate 6 mg 02/24/17 20:16 02/24/17 21:43 Imitrex SUBCUT 02/24/17 20:17 Not Given ONETIME ONE - Re-Assessments/Exams Free Text/Narrative Re-Assessment/Exam: 02/24/17 21:40 86-year-old male with recurrent right-sided headaches, associated with visual symptoms. Differential diagnosis includes tension headache, migraine headache and cluster headache Complicated by his dementia and poor memory so is difficult to get an accurate assessment of the headaches. Symptoms have resolved now and patient/daughter declined parenteral medication Discharge, prescription for promethazine since this is available throughthe dispensing machine 02/24/17 21:57 Departure - Departure Time of Disposition: 21:41 Disposition: Home, Self-Care 01 Condition: Fair Clinical Impression: Recurrent headache - Discharge Information Prescriptions: Promethazine [Phenergan] 25 mg PO Q6H PRN #15 tab PRN Reason: nausea vomiting or headache Instructions: Cluster Headache, [id number] Referrals: Sidney Lorenzana NP [Primary Care Provider] - Forms: ED Department Discharge Additional Instructions: The headache is suspicious for migraine and in particular cluster headache. He is prescribed some promethazine, this can help with nausea vomiting and with a headache if taken early but it does cause sleepiness. Make an appointment with his doctor if you don't already have one in the next few weeks for follow-up
== END 2017-02-24 21:51 | disposition home or self-care (01) ==
LOC: JP.ED 18:34
DX: R51 Headache (principal); K21.9 Gastro-esophageal reflux disease without esophagitis; I12.9 Hypertensive chronic kidney disease with stage 1 through stage 4 chronic kidney disease, or unspecified chronic kidney disease; N18.9 Chronic kidney disease, unspecified; Z86.73 Personal history of transient ischemic attack (TIA), and cerebral infarction without residual deficits; Z91.018 Allergy to other foods; Z79.899 Other long term (current) drug therapy; Z88.8 Allergy status to other drugs, medicaments and biological substances
CPT/HCPCS: 99284; 99285

== ENCOUNTER 2017-07-09 12:14 | Emergency (ER) | payer MEDICARE, MEDICAID ==
[2017-07-09 12:32] VITALS: BP 132/47
[2017-07-09] MEDS ORDERED: Ondansetron 4 MG Tab.DIS PO ONE (13:02)
--- NOTE | 2017-07-09 13:17 | EDM.PDOC ---
ED HPI GENERAL MEDICAL PROBLEM - General Chief Complaint: Headache Stated Complaint: VOMITING Time Seen by Provider: 07/09/17 12:45 Source of Information: Reports: EMS, Family History Limitations: Reports: Altered Mental Status (chronic significant dementia, worsening) - History of Present Illness INITIAL COMMENTS - FREE TEXT/NARRATIVE: 87-year-old male brought in by ambulance because of many complaints. He has no complaints personally but his family is concerned that he is having headaches, he vomited this morning, he is losing weight, not eating well, complaining of abdominal pain, and this morning he had an emesis. No fevers or chills. They are awaiting placement in the [facility] care unit at the halfway. They are also worried that his vision is worsening as well as his dementia. Onset: Unknown/Unsure Severity: Moderate Associated Symptoms: Reports: Malaise, Nausea/Vomiting, Other (Intermittent abdominal pain and worsening headaches) - Related Data Allergies Allergy/AdvReac Type Severity Reaction Status Date / Time donepezil [From Aricept] Allergy Insomnia Verified 07/09/17 12:30 onion Allergy Other Verified 07/09/17 12:30 oxybutynin Allergy Swelling Verified 07/09/17 12:30 Home Meds: Home Meds Citalopram [Citalopram HBr] 20 mg PO DAILY 12/27/15 [History] Clopidogrel [Plavix] 75 mg PO DAILY 12/27/15 [History] Furosemide [Lasix] 40 mg PO DAILY PRN 12/27/15 [History] Multivit-Min/FA/Lycopene/Lut [Centrum Silver Tablet] 1 tab PO DAILY 05/07/16 [ History] QUEtiapine Fumarate [Seroquel] 100 mg PO DAILY 06/25/16 [History] atorvaSTATin Calcium [Atorvastatin Calcium] 80 mg PO DAILY 06/25/16 [History] Esomeprazole Magnesium [Nexium] 40 mg PO DAILY 12/03/16 [History] Acetaminophen/oxyCODONE [Percocet 325-5 MG] 1 tab PO Q6H PRN 07/09/17 [History] Aspirin [Children's Aspirin] 1 tab PO DAILY 07/09/17 [History] Cetirizine [ZyrTEC] 10 mg PO DAILY 07/09/17 [History] Fluticasone Propionate [Flonase Allergy Relief] 2 spray UZMA DAILY 07/09/17 [ History] Levothyroxine 1 tab PO DAILY 07/09/17 [History] Polyethylene Glycol 3350 [MiraLAX] 17 g PO DAILY 07/09/17 [History] Past Medical History HEENT History: Reports: Impaired Vision Cardiovascular History: Reports: Congenital Septal Defect, Heart Murmur, High Cholesterol, Hypertension Gastrointestinal History: Reports: GERD Genitourinary History: Reports: Chronic Renal Insuffiency Musculoskeletal History: Reports: Other (See Below) Other Musculoskeletal History: chronic left hip pain Neurological History: Reports: TIA Other Neuro History: daughter states patient has had a stroke Psychiatric History: Reports: Anxiety, Dementia, Depression Oncologic (Cancer) History: Reports: Other (See Below) Other Oncologic History: 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 Denies: Fever, Chills Respiratory: Reports: Shortness of Breath (With activity) Cardiovascular: Denies: Chest Pain GI/Abdominal: Reports: Abdominal Pain, Vomiting. Denies: Diarrhea : Reports: No Symptoms Neurological: Reports: Confusion, Headache Psychiatric: Reports: Confusion. Denies: Anxiety, Depression ED EXAM, GENERAL - Physical Exam Exam: See Below Exam Limited By: No Limitations General Appearance: Alert, No Apparent Distress Eye Exam: Bilateral Eye: EOMI Neck: Supple Respiratory/Chest: No Respiratory Distress, Lungs Clear Cardiovascular: Regular Rate, Rhythm GI/Abdominal: Normal Bowel Sounds, Tender (He does react with tenderness to palpation diffusely, no focal tenderness) Extremities: Pedal Edema (1+ symmetric edema of the lower extremities and ankles ) Neurological: Alert, No Motor/Sensory Deficits. No: Oriented Psychiatric: Normal Affect, Normal Mood Skin Exam: Warm, Dry Course - Vital Signs Last Recorded V/S: Last Vital Signs Temp 97.2 F 07/09/17 12:37 Pulse 57 L 07/09/17 12:37 Resp 18 07/09/17 12:37 BP 132/47 L 07/09/17 12:37 Pulse Ox 95 07/09/17 12:37 - Orders/Labs/Meds Labs: Laboratory Tests 07/09/17 07/09/17 Range/Units 13:11 13:11 WBC 5.9 (4.5-11.0) K/uL RBC 4.18 L (4.30-5.90) M/uL Hgb 13.0 (12.0-15.0) g/dL Hct 38.2 L (40.0-54.0) % MCV 91 (80-98) fL MCH 31 (27-31) pg MCHC 34 (32-36) % Plt Count 199 (150-400) K/uL Neut % (Auto) 69 H (36-66) % Lymph % (Auto) 22 L (24-44) % [place] % (Auto) 7 H (2-6) % Eos % (Auto) 2 (2-4) % Baso % (Auto) 0 (0-1) % Sodium 142 (140-148) mmol/L Potassium 3.9 (3.6-5.2) mmol/L Chloride 107 (100-108) mmol/L Carbon Dioxide 26 (21-32) mmol/L Anion Gap 9.0 (5.0-14.0) mmol/L BUN 29 H (7-18) mg/dL Creatinine 1.4 H (0.8-1.3) mg/dL Est Cr Clr Drug Dosing 36.93 mL/min Estimated GFR (MDRD) 48 L (>60) Glucose 102 (74-106) mg/dL Calcium 8.2 L (8.5-10.1) mg/dL Total Bilirubin 0.5 (0.2-1.0) mg/dL AST 21 (15-37) U/L ALT 20 (12-78) U/L Alkaline Phosphatase 73 (46-116) U/L Total Protein 6.4 (6.4-8.2) g/dL Albumin 3.4 (3.4-5.0) g/dL Globulin 3.0 (2.3-3.5) g/dL Albumin/Globulin Ratio 1.1 L (1.2-2.2) Meds: Medications Discontinued Medications Generic Name Dose Route Start Last Admin Trade Name Freq PRN Reason Stop Dose Admin Ondansetron HCl 4 mg 07/09/17 13:02 07/09/17 13:19 Zofran Odt PO 07/09/17 13:03 4 mg ONETIME ONE Administration - Re-Assessments/Exams Free Text/Narrative Re-Assessment/Exam: 07/09/17 13:16 Patient was given one sublingual Zofran 4 mg, and a CBC, CMP and UA were obtained. We will also obtain a CT of his head which he has not had for 7 months. 07/09/17 14:01 Patient had no further emesis over the next couple hours. Head CT was stable, labs were very reassuring. I understand that the patient is becoming more problematic caring for at home but there is no medical reason to transfer the patient at this time, there are no beds available at this hospital. Departure - Departure Time of Disposition: 14:11 Disposition: Home, Self-Care 01 Condition: Fair Clinical Impression: Recurrent headache Nausea and vomiting Qualifiers: Vomiting type: unspecified Vomiting Intractability: non-intractable Qualified Code(s): R11.2 - Nausea with vomiting, unspecified - Discharge Information Instructions: Nausea and Vomiting, Adult Referrals: PCP,None [Primary Care Provider] - Forms: ED Department Discharge Care Plan Goals: Continue current medications and diet as tolerated. Use Zofran for any further nausea or vomiting and return anytime if worsening such as difficulty breathing or fever. Discuss respite care with your primary doctor next week, in a local halfway while waiting memory care placement.
--- NOTE | 2017-07-09 13:41 | CT ---
CT Head wo Cont CLINICAL HISTORY: Headache, increasing confusion COMPARISON: 2017 TECHNIQUE: Transverse scans were obtained from the base of the skull through the vertex without IV co ntrast on a multislice, multidetector CT scanner. Auto dosage reduction and iterative reconstruction techniques employed. Total DLP head 728 FINDINGS: No focal abnormal parenchymal densities are identified. There is no mass effect, hemorrhage , or extraaxial collection. The basal cisterns and sulci over the convexities are dominant. The ventr icles are normal for age. There are some periventricular and subcortical lucency IMPRESSION: Moderate age-related atrophy similar to prior study. Periventricular and subcortical lucency likely related to some chronic ischemic microvascular change
== END 2017-07-09 14:11 | disposition home or self-care (01) ==
LOC: JP.ED 12:14
DX: R51 Headache (principal); R11.2 Nausea with vomiting, unspecified; Z79.899 Other long term (current) drug therapy; E78.00 Pure hypercholesterolemia, unspecified; I12.9 Hypertensive chronic kidney disease with stage 1 through stage 4 chronic kidney disease, or unspecified chronic kidney disease; N18.9 Chronic kidney disease, unspecified
CPT/HCPCS: 36415; 70450; 70450-26; 80053; 85025; 99285-25; A9270-GY

== ENCOUNTER 2017-08-23 11:59 | Emergency (ER) | payer MEDICARE, MEDICAID ==
[2017-08-23] MEDS ORDERED: Haloperidol Lactate 5 MG/ML SDV IM ONE ×3 (12:01→18:35)
--- NOTE | 2017-08-23 12:17 | EDM.PDOCBH ---
<Rey Brower G - Last Filed: 08/23/17 17:16> ED HPI GENERAL MEDICAL PROBLEM - General Chief Complaint: Behavioral/Psych Stated Complaint: MIXED FEELINGS Time Seen by Provider: 08/23/17 12:00 Source of Information: Reports: EMS, Old Records History Limitations: Reports: No Limitations - History of Present Illness INITIAL COMMENTS - FREE TEXT/NARRATIVE: 87 yo male here via EMS for behavioral concerns by family. Has dementia. Is awaiting placement in a memory care unit. Now has behaviors that need to be addressed before he can enter any memory care unit. Not sleeping. Calling out help me repeatedly. Family relates weight loss per records from a recent ER visit here. Vitals stable per EMS. Onset: Gradual Duration: Chronic, Getting Worse Severity: Severe Improves with: Reports: None Worsens with: Reports: Other (? time) Context: Reports: Other (Has known dementia) Associated Symptoms: Reports: Confusion, Loss of Appetite Treatments PANEL BEATER: Reports: Other (see below) (none) - Related Data Allergies Allergy/AdvReac Type Severity Reaction Status Date / Time donepezil [From Aricept] Allergy Insomnia Verified 07/09/17 12:30 morphine Allergy Hallucinati Verified 08/23/17 12:14 ons onion Allergy Other Verified 07/09/17 12:30 oxybutynin Allergy Swelling Verified 07/09/17 12:30 Home Meds: Home Meds Citalopram [Citalopram HBr] 20 mg PO DAILY 12/27/15 [History] Furosemide [Lasix] 40 mg PO DAILY PRN 12/27/15 [History] QUEtiapine Fumarate [Seroquel] 100 mg PO DAILY 06/25/16 [History] Esomeprazole Magnesium [Nexium] 40 mg PO DAILY 12/03/16 [History] Acetaminophen/oxyCODONE [Percocet 325-5 MG] 1 tab PO Q6H PRN 07/09/17 [History] Levothyroxine 25 mcg PO DAILY 07/09/17 [History] Polyethylene Glycol 3350 [MiraLAX] 17 g PO DAILY PRN 07/09/17 [History] Past Medical History HEENT History: Reports: Impaired Vision Cardiovascular History: Reports: Congenital Septal Defect, Heart Murmur, High Cholesterol, Hypertension Gastrointestinal History: Reports: GERD Genitourinary History: Reports: Chronic Renal Insuffiency Musculoskeletal History: Reports: Other (See Below) Other Musculoskeletal History: chronic left hip pain Neurological History: Reports: TIA Other Neuro History: daughter states patient has had a stroke Psychiatric History: Reports: Anxiety, Dementia, Depression Oncologic (Cancer) History: Reports: Other (See Below) Other Oncologic History: 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 - Infectious Disease History Infectious Disease History: Reports: Chicken Pox, Measles, Mumps - Past Surgical History Cardiovascular Surgical History: Reports: Coronary Artery Bypass Social & Family History - Family History Cardiac: Reports: [place] - Tobacco Use Smoking Status *Q: Never Smoker Second Hand Smoke Exposure: No - Caffeine Use Caffeine Use: Reports: Coffee - Recreational Drug Use Recreational Drug Use: No ED ROS GENERAL - Review of Systems Review Of Systems: Unable To Obtain (due to dementia) Constitutional: Reports: Decreased Appetite (taken from notes of recent ER visit.) ED EXAM, BEHAVIORAL HEALTH - Physical Exam Exam: See Below Exam Limited By: No Limitations General Appearance: Alert, WD/WN, No Apparent Distress (Calling out repeatedly, "Help me" ) Eye Exam: Bilateral Eye: Normal Inspection Ears: Normal External Exam, Normal Canal, Hearing Grossly Normal Nose: Normal Inspection, Normal Mucosa, No Blood Throat/Mouth: Normal Inspection, Normal Lips, Normal Voice, No Airway Compromise Head: Atraumatic, Normocephalic Neck: Normal Inspection Respiratory/Chest: No Respiratory Distress, Lungs Clear, Normal Breath Sounds, No Accessory Muscle Use Cardiovascular: Regular Rate, Rhythm GI/Abdominal: Normal Bowel Sounds, Soft, Non-Tender Extremities: Normal Range of Motion, Non-Tender, Pedal Edema (Trace to both legs below the knees.) Neurological: Alert, CN II-XII Intact, No Motor/Sensory Deficits, Disoriented to Place, Disoriented to Time Psychiatric: Alert, Agitated, Disoriented Skin Exam: Warm, Dry, Intact, Normal color, No rash, Ecchymosis (some extremity bruising) EKG INTERPRETATION EKG Date: 08/23/17 Time: 16:25 Rhythm: NSR Rate (Beats/Min): 101 [place]: Normal P-Wave: Present QRS: LBBB ST-T: Normal QT: Normal Comparison: Change From Previous EKG (Rate increased from 60 to 100/min.) COURSE, BEHAVIORAL HEALTH COMP - Course Vital Signs: Last Vital Signs Temp 36.4 C 04/24/18 08:57 Pulse 80 08/24/17 08:57 Resp 16 08/24/17 08:57 BP 153/66 H 08/24/17 08:57 Pulse Ox 96 08/24/17 08:57 Orders, Labs, Meds: Active Orders 24 hr Category Date Time Status Cardiac Monitoring [RC] .As Directed Care 08/23/17 18:43 Active EKG Documentation Completion [RC] ASDIRECTED Care 08/23/17 16:15 Active UA W/MICROSCOPIC [URIN] Stat Lab 08/23/17 16:02 Ordered Citalopram [Celexa] Med 08/24/17 09:00 Active 20 mg PO DAILY Divalproex Sodium Med 08/24/17 08:00 Active 250 mg PO BIDMEALS Levothyroxine Med 08/24/17 07:30 Active 25 mcg PO ACBREAKFAST QUEtiapine [SEROquel] Med 08/24/17 09:00 Active 100 mg PO DAILY EKG 12 Lead [EK] Routine Ther 08/23/17 16:15 Ordered Medication Orders Citalopram Hydrobromide (Celexa) 20 mg PO DAILY REPLACED BY [facility] Last Admin: 08/24/17 08:58 Dose: 20 mg Divalproex Sodium (Divalproex Sodium) 250 mg PO BIDMEALS REPLACED BY [facility] Last Admin: 08/24/17 07:25 Dose: 250 mg Levothyroxine Sodium (Levothyroxine) 25 mcg PO ACBREAKFAST REPLACED BY [facility] Last Admin: 08/24/17 07:20 Dose: 25 mcg Quetiapine Fumarate (Seroquel) 100 mg PO DAILY REPLACED BY [facility] Last Admin: 08/24/17 08:59 Dose: 100 mg Laboratory Tests 08/23/17 08/23/17 08/23/17 Range/Units 12:15 12:15 12:18 WBC 7.2 (4.5-11.0) K/uL RBC 4.18 L (4.30-5.90) M/uL Hgb 12.9 (12.0-15.0) g/dL Hct 38.3 L (40.0-54.0) % MCV 92 (80-98) fL MCH 31 (27-31) pg MCHC 34 (32-36) % Plt Count 224 (150-400) K/uL Sodium 141 (140-148) mmol/L Potassium 4.4 (3.6-5.2) mmol/L Chloride 104 (100-108) mmol/L Carbon Dioxide 24 (21-32) mmol/L Anion Gap 12.9 (5.0-14.0) mmol/L BUN 46 H D (7-18) mg/dL Creatinine 2.1 H (0.8-1.3) mg/dL Est Cr Clr Drug Dosing 24.68 mL/min Estimated GFR (MDRD) 30 L (>60) Glucose 109 H (74-106) mg/dL Calcium 8.8 (8.5-10.1) mg/dL Troponin I < 0.017 (0.000-0.056) ng/mL TSH, Ultra Sensitive 6.586 H (0.358-3.740) uIU/mL Urine Color Urine Appearance Urine pH (4.5-8.0) Ur Specific [place] (1.008-1.030) Urine Protein (NEGATIVE) mg/dL Urine Glucose (UA) (NEGATIVE) mg/dL Urine Ketones (NEGATIVE) mg/dL Urine Occult Blood (NEGATIVE) Urine Nitrite (NEGAITVE) Urine Bilirubin (NEGATIVE) Urine Urobilinogen (NORMAL) mg/dL Ur Leukocyte Esterase (NEGATIVE) Urine RBC (0-5) Urine WBC (0-5) Ur Epithelial Cells Amorphous Sediment Urine Bacteria Urine Mucus 08/23/17 Range/Units 16:02 WBC (4.5-11.0) K/uL RBC (4.30-5.90) M/uL Hgb (12.0-15.0) g/dL Hct (40.0-54.0) % MCV (80-98) fL MCH (27-31) pg MCHC (32-36) % Plt Count (150-400) K/uL Sodium (140-148) mmol/L Potassium (3.6-5.2) mmol/L Chloride (100-108) mmol/L Carbon Dioxide (21-32) mmol/L Anion Gap (5.0-14.0) mmol/L BUN (7-18) mg/dL Creatinine (0.8-1.3) mg/dL Est Cr Clr Drug Dosing mL/min Estimated GFR (MDRD) (>60) Glucose (74-106) mg/dL Calcium (8.5-10.1) mg/dL Troponin I (0.000-0.056) ng/mL TSH, Ultra Sensitive (0.358-3.740) uIU/mL Urine Color Yellow Urine Appearance Clear Urine pH 5.0 (4.5-8.0) Ur Specific [place] 1.020 (1.008-1.030) Urine Protein Negative (NEGATIVE) mg/dL Urine Glucose (UA) Normal (NEGATIVE) mg/dL Urine Ketones Negative (NEGATIVE) mg/dL Urine Occult Blood Negative (NEGATIVE) Urine Nitrite Negative (NEGAITVE) Urine Bilirubin Small (NEGATIVE) Urine Urobilinogen Normal (NORMAL) mg/dL Ur Leukocyte Esterase Negative (NEGATIVE) Urine RBC Not seen (0-5) Urine WBC 0-5 (0-5) Ur Epithelial Cells Rare Amorphous Sediment Not seen Urine Bacteria Rare Urine Mucus Moderate Medications Generic Name Dose Route Start Last Admin Trade Name Meredith PRN Reason Stop Dose Admin Citalopram Hydrobromide 20 mg 08/24/17 09:00 08/24/17 08:58 Celexa PO 20 mg DAILY JUN Administration Divalproex Sodium 250 mg 08/24/17 08:00 08/24/17 07:25 Divalproex Sodium PO 250 mg BIDMEALS JUN Administration Levothyroxine Sodium 25 mcg 08/24/17 07:30 08/24/17 07:20 Levothyroxine PO 25 mcg ACBREAKFAST JUN Administration Quetiapine Fumarate 100 mg 08/24/17 09:00 08/24/17 08:59 Seroquel PO 100 mg DAILY JUN Administration Discontinued Medications Generic Name Dose Route Start Last Admin Trade Name Meredith PRN Reason Stop Dose Admin Acetaminophen 650 mg 08/24/17 09:24 08/24/17 09:29 Tylenol PO 08/24/17 09:25 650 mg NOW ONE Administration Al Hydroxide/Mg Hydroxide 30 ml 08/23/17 17:08 08/23/17 17:28 Mag-Al Plus PO 08/23/17 17:09 30 ml ONETIME ONE Administration Divalproex Sodium 250 mg 08/23/17 19:18 08/23/17 19:56 Divalproex Sodium PO 08/23/17 19:19 250 mg ONETIME ONE Administration Haloperidol Lactate 5 mg 08/23/17 12:01 08/23/17 12:09 Haldol IM 08/23/17 12:02 5 mg ONETIME ONE Administration Haloperidol Lactate 5 mg 08/23/17 12:45 08/23/17 13:01 Haldol IM 08/23/17 12:46 5 mg ONETIME ONE Administration Haloperidol Lactate 10 mg 08/23/17 18:35 08/23/17 18:52 Haldol IM 08/23/17 18:36 10 mg ONETIME ONE Administration Lactated Ringer's 1,000 mls @ 1,000 mls/hr 08/23/17 13:06 08/23/17 13:23 Ringers, Lactated IV 08/23/17 14:05 1,000 mls/hr BOLUS ONE Administration Ketorolac Tromethamine 15 mg 08/23/17 19:28 08/23/17 19:41 Toradol IVPUSH 08/23/17 19:29 15 mg ONETIME ONE Administration Promethazine HCl 12.5 mg 08/23/17 18:37 08/23/17 18:52 Phenergan IM 08/23/17 18:38 12.5 mg ONETIME ONE Administration Medical Clearance: 08/23/17 13:36 Bladder scan-43 ml, Depends undergarment slightly wet Is much more calm after the Haldol 10 mg IM, not overly sedated. 08/23/17 17:16 Departure - Departure Disposition: Home, Self-Care 01 Condition: Fair Clinical Impression: Mild dehydration, Hypothyroid Dementia with behavioral disturbance Qualifiers: Dementia type: unspecified type Qualified Code(s): F03.91 - Unspecified dementia with behavioral disturbance Urinary incontinence Qualifiers: Urinary Incontinence type: unspecified incontinence Qualified Code(s): R32 - Unspecified urinary incontinence - Discharge Information Referrals: Sidney Lorenzana NP [Primary Care Provider] - Forms: ED Department Discharge Care Plan Goals: discharge home until placement can be found, depakote 250 bid, rtc if increased problems. He is on the waiting list at [facility]. increase levothyronin to 2 tabs one day and one the next. <Natalie Pizarro - Last Filed: 08/24/17 10:47> COURSE, BEHAVIORAL HEALTH COMP - Course Medical Clearance: 08/24/17 10:41 pt did relax and sleep with the depakote that was given to the pt. It appears that the Morphine he was given at home made him more agitated. He is on the list for [facility] and also for several memmory units. Departure - Departure Time of Disposition: 10:43
[2017-08-23] MEDS ORDERED: Lactated Ringers 1,000 ML IV ONE (13:06)
[2017-08-23] MEDS ORDERED: Aluminum Hydroxide/Magnesium Hydroxide/Simethicone Susp 30 ML Cup PO ONE (17:08)
[2017-08-23] MEDS ORDERED: Promethazine 25 MG/ML SDV IM ONE (18:37)
[2017-08-23] MEDS ORDERED: Divalproex Sodium Delayed-Release 250 MG Tab.CR PO ONE (19:18)
[2017-08-23] MEDS ORDERED: Ketorolac 30 MG/ML SDV IVPUSH ONE (19:28)
[2017-08-24] MEDS ORDERED: Levothyroxine 25 MCG Tab PO SCH (07:30)
[2017-08-24] MEDS ORDERED: Divalproex Sodium Delayed-Release 250 MG Tab.CR PO SCH (08:00)
[2017-08-24] MEDS ORDERED: QUEtiapine 100 MG Tab PO SCH (09:00)
[2017-08-24] MEDS ORDERED: Citalopram 20 MG Tab PO SCH (09:00)
[2017-08-24] MEDS ORDERED: Acetaminophen 325 MG Tab PO ONE (09:24)
[2017-08-24 11:36] VITALS: BP 147/67
== END 2017-08-24 12:20 | disposition home or self-care (01) ==
LOC: JP.ED 11:59
DX: F03.91 Unspecified dementia, unspecified severity, with behavioral disturbance (principal); E86.0 Dehydration; R32 Unspecified urinary incontinence; E03.9 Hypothyroidism, unspecified; I12.9 Hypertensive chronic kidney disease with stage 1 through stage 4 chronic kidney disease, or unspecified chronic kidney disease; N18.9 Chronic kidney disease, unspecified; Z88.5 Allergy status to narcotic agent; Z91.018 Allergy to other foods; Z88.8 Allergy status to other drugs, medicaments and biological substances; Z79.899 Other long term (current) drug therapy
CPT/HCPCS: 36415; 51798; 80048; 81001; 84443; 84484; 85027; 93005; 96361; 96372; 96374; 99284; A9270; J1630; J1885; J2550; J7120

== ENCOUNTER 2017-11-12 17:16 | Emergency (ER) | payer MEDICARE, MEDICAID ==
[2017-11-12 17:41] VITALS: BP 111/58
--- NOTE | 2017-11-12 18:46 | EDM.PDOCBH ---
ED HPI GENERAL MEDICAL PROBLEM - General Chief Complaint: Neurological Problem Stated Complaint: MIXED UP LOST WAS WALKING IN [place] Time Seen by Provider: 11/12/17 18:44 Source of Information: Reports: Other (History given to triage and nursing only) - Related Data Allergies Allergy/AdvReac Type Severity Reaction Status Date / Time donepezil [From Aricept] Allergy Insomnia Verified 07/09/17 12:30 morphine Allergy Hallucinati Verified 08/23/17 12:14 ons onion Allergy Other Verified 07/09/17 12:30 oxybutynin Allergy Swelling Verified 07/09/17 12:30 Home Meds: Home Meds Citalopram [Citalopram HBr] 20 mg PO DAILY 12/27/15 [History] Furosemide [Lasix] 40 mg PO DAILY PRN 12/27/15 [History] QUEtiapine Fumarate [Seroquel] 100 mg PO DAILY 06/25/16 [History] Esomeprazole Magnesium [Nexium] 40 mg PO DAILY 12/03/16 [History] Acetaminophen/oxyCODONE [Percocet 325-5 MG] 1 tab PO Q6H PRN 07/09/17 [History] Levothyroxine 25 mcg PO DAILY 07/09/17 [History] Polyethylene Glycol 3350 [MiraLAX] 17 g PO DAILY PRN 07/09/17 [History] Past Medical History HEENT History: Reports: Impaired Vision Cardiovascular History: Reports: Congenital Septal Defect, Heart Murmur, High Cholesterol, Hypertension Gastrointestinal History: Reports: GERD Genitourinary History: Reports: Chronic Renal Insuffiency Musculoskeletal History: Reports: Other (See Below) Other Musculoskeletal History: chronic left hip pain Neurological History: Reports: TIA Other Neuro History: daughter states patient has had a stroke Psychiatric History: Reports: Anxiety, Dementia, Depression Oncologic (Cancer) History: Reports: Other (See Below) Other Oncologic History: 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 - Infectious Disease History Infectious Disease History: Reports: Chicken Pox, Measles, Mumps - Past Surgical History Cardiovascular Surgical History: Reports: Coronary Artery Bypass Social & Family History - Family History Cardiac: Reports: [place] - Caffeine Use Caffeine Use: Reports: Coffee ED ROS GENERAL - Review of Systems Review Of Systems: Unable To Obtain ED EXAM, BEHAVIORAL HEALTH - Physical Exam Exam: Not Obtained COURSE, BEHAVIORAL HEALTH COMP - Course Vital Signs: Last Vital Signs Temp 97.2 F 11/12/17 17:40 Pulse 82 11/12/17 17:40 Resp 15 11/12/17 17:40 BP 111/58 L 11/12/17 17:40 Pulse Ox 99 11/12/17 17:40 Re-Assessment/Re-Exam: 87-year-old male with a long history of dementia recurring confusion apparently was wandering in the [place] and it scared the family so they brought him in for evaluation but when they arrived, after his screening and vitals were taken by nursing they realized nothing was new and no physician evaluation was necessary. It was advised that he be seen and evaluated but they decided to leave AMA. No physician saw the patient. Departure - Departure Time of Disposition: 18:30 Disposition: Against Medical Advice 07 Condition: Undetermined Clinical Impression: Dementia - Discharge Information Referrals: Sidney Lorenzana NP [Primary Care Provider] - Forms: ED Department Discharge Care Plan Goals: Patient left AMA prior to physician evaluation area
== END 2017-11-12 19:03 | disposition left against medical advice (07) ==
LOC: JP.ED 17:16
DX: Z53.21 Procedure and treatment not carried out due to patient leaving prior to being seen by health care provider (principal)